=== PATIENT | female | born 1940 | race Caucasian/White ===

== ENCOUNTER → 2017-02-06 | Day surgery (SDC) | payer MEDICARE ==
[~2017-02-06] MED LIST: ACET325 PO; ASPI81TA82 PO; ATROPINE SULFATE 1% OPHT SOLN 2 ML BTL ONE; CALC600T44 PO; DEXAMETHASONE SOD PHOS 4 MG/ML VIAL ONE; EPINEPHrine HCL (1:1000) 1 MG/ML VIAL ONE; FISH120014 PO; FLURBIPROFEN 0.03% OPHT SOLN 2.5 ML BTL ONE; HYALURONIDASE/LIDOCAINE/BUPIVACAINE 11 ML SYR TL ONE; LACTATED RINGER'S 1000 ML INJ 1,000 ML ONE; LACTCAP7 PO; NEOMYCIN/POLYMYXIN/DEXAMETHASONE OPTH OINT 3.5 GM TUBE ONE; PHENYLEPHRINE HCL 2.5 % OPTH SOLN 15 ML BTL ONE; PRIL20CA PO; PROPOFOL 200 MG/20 ML AMP IV ONE; SODIUM CHLORIDE 0.9% INJ 10 ML ONE; TETRACAINE 0.5% OPTH SOLN 15 ML BTL ONE; TROPICAMIDE 1% OPHT SOLN 15 ML BTL ONE; VITA10002 PO; VITA20003 PO; ZOCO40TA PO; ceFAZolin INJ 1,000 MG VIAL ONE
--- NOTE | 2017-02-28 08:02 | TN ---
cc: ALEC CHING MD DATE OF SURGERY February 06, 2017 DATE OF 1940 PREOPERATIVE DIAGNOSIS Macular hole right eye. POSTOPERATIVE DIAGNOSIS Macular hole right eye. PROCEDURE Pars plana vitrectomy, membrane peeling, gas-fluid exchange, right eye. ANESTHESIA MAC. SURGEON Alec Ching MD. COMPLICATIONS None. PROCEDURE After informed consent was obtained and the eye was anesthetized with peribulbar anesthesia, she was brought to the operating room and the right eye was prepared and draped in the usual sterile fashion. A wire lid speculum was placed in the patient's right eye. 23-gauge vitrectomy cannulas were then placed in the lower temporal, supratemporal and supranasal quadrants 3 mm posterior to the corneoscleral limbus. An infusion cannula was placed lower temporally. Core vitrectomy was then performed using the vitreous cutter. The vitrectomy was carried out as far as possible to the vitreous base. Posteriorly the internal limiting membrane was peeled off from around the macular hole using intraocular forceps. Careful indirect ophthalmoscopy with scleral depression was then performed and no peripheral retinal breaks were noted. A complete air-fluid exchange was then performed. The air was then exchanged for 16% C3F8. The three vitrectomy cannulas were then removed. Subconjunctival injections of dexamethasone and Ancef were placed. An atropine drop, Maxitrol ointment and a patch and shield were then applied. The patient tolerated the procedure well. There were no complications. She will remain face down over the next five days. [facility]. Alec Ching MD TAB/SSB /10:04 AM /7:57 AM
== END | disposition home or self-care (01) ==
LOC: ESDC 12:21
PROVIDERS: ATTEND Ophthalmology Retina Specialist
DX: H35.341 Macular cyst, hole, or pseudohole, right eye (principal)
CPT/HCPCS: 00145; 67042; J0171; J0690; J1100; J7120

== ENCOUNTER 2018-12-21 11:00 | Inpatient (IN) ==
[2018-12-21 12:21] LABS: Baso % (Auto) 0.7 % (0.0-2.0); Eos # (Auto) 0.1 th/mm3 (0.0-0.4); Eos % (Auto) 2.2 % (0.0-4.0); Lymph # (Auto) 1.5 th/mm3 (1.0-4.8); Mean Corpuscular HGB Conc 31.6 % (32.0-36.0); Mean Corpuscular Hemoglobin 31.3 pg (27.0-34.0); Mean Corpuscular Volume 98.9 fL (80.0-100.0); Mean Platelet Volume 6.6 fL (7.0-11.0); Mono # (Auto) 0.5 th/mm3 (0.0-0.9); Mono % (Auto) 7.3 % (0.0-8.0); Neut # (Auto) 4.2 th/mm3 (1.8-7.7); Neut % (Auto) 65.8 % (16.0-70.0); Platelet Count 299 th/mm3 (150-450); Red Blood Count 1.89 mil/mm3 (4.00-5.30); Red Cell Distribution Width 18.3 % (11.6-17.2); White Blood Count 6.3 th/mm3 (4.0-11.0)
[2018-12-21 12:29] LABS: Activated Partial Thrombo Time 26.1 sec (23.4-31.7); Hematocrit 18.7 % (35.0-46.0); Hemoglobin 5.9 gm/dL (11.6-15.3); Prothrombin Time 10.5 sec (9.8-11.6)
--- NOTE | 2018-12-21 12:32 | XR ---
EXAM DATE: 12/21/2018 12:15 PM EST AGE/SEX: 78 years / Female INDICATIONS: Chest pain with shortness of breath. CLINICAL DATA: This is the patient's initial encounter. Patient reports that signs and symptoms have been present for 1 day and indicates a pain score of 10/10. MEDICAL/SURGICAL HISTORY: . Aortic stenosis. Coronary artery disease. Diastolic heart failure. . Valve replacement. COMPARISON: No prior exams available for comparison. FINDINGS: A single AP view of the chest demonstrates the lungs to be symmetrically aerated without evidence of mass, infiltrate or effusion. Mild cardiomegaly. Shoulder arthroplasty on the left CONCLUSION: Mild compensated cardiomegaly Electronically signed by: Sergio Vega MD Board Certified Radiologist 12/21/2018 12:31 PM EST
[2018-12-21] MEDS ORDERED: Pantoprazole Inj 80 MG in Sodium Chlor 0.9% Inj 50 ML IV.SIG ONE (12:40)
[2018-12-21 12:49] LABS: Alanine Aminotransferase 17 U/L (10-53); Albumin 3.3 g/dL (3.4-5.0); Anion Gap 9 meq/L (5-15); Aspartate Aminotransferase 13 U/L (15-37); Blood Urea Nitrogen 18 mg/dL (7-18); Calcium 8.3 mg/dL (8.5-10.1); Carbon Dioxide 23.6 meq/L (21.0-32.0); Chloride 108 meq/L (98-107); Glomerular Filtration Rate 79 mL/min (>89); Glucose,Random 108 mg/dL (74-106); Lipase 52 U/L (73-393); Potassium 3.4 meq/L (3.5-5.1); Sodium 141 meq/L (136-145)
[2018-12-21 12:52] LABS: Alkaline Phosphatase 58 U/L (45-117); Total Protein 6.3 g/dL (6.4-8.2)
[2018-12-21 12:54] LABS: Magnesium 2.1 mg/dL (1.5-2.5)
[2018-12-21] MEDS ORDERED: Octreotide Inj 500 MCG in Sodium Chlor 0.9% Inj 500 ML IV.CONT SCH (13:00)
[2018-12-21] MEDS ORDERED: Sodium Chlor 0.9% Inj 250 ML IV.SIG SCH (13:00)
--- NOTE | 2018-12-21 13:04 | ED ---
HPI General Chief complaint: Chest Pain Stated complaint: Chest Pain/SOB Time Seen by Provider: 12/21/18 12:04 Source: patient and family Mode of arrival: EMS Limitations: no limitations History of Present Illness HPI narrative: Patient is an 78-year-old female presenting to emergency department evaluation of shortness of breath and chest tightness. Patient states it is worse with exertion, she feels lightheaded. She states that when this occurs she feels somewhat disoriented. Patient is currently resting comfortably, she is chest pain-free. She states this has gotten worse over the last 3 weeks. Patient states for the last week she is noticed dark, tarry like stools. Patient had been on iron therapy but stopped this week ago thinking that was what was causing her stool to be dark. Her home health nurse had documented positive orthostatic vital signs with a systolic blood pressure dropping from 130->100 when standing. Patient also reports orthopnea. Patient was having outpatient testing performed this morning when she began to experience these symptoms again and was sent to the emergency department. Patient currently denies any headache, dizziness, chest pain, abdominal pain, nausea, vomiting. Onset (ago): week(s) Related Data Home Medications Medication Instructions Recorded Confirmed cholecalciferol (vitamin D3) 2,000 unit PO DAILY 11/30/18 12/21/18 [Vitamin D3] [id number] oil 1 cap PO DAILY 11/30/18 12/21/18 [[place]-3 (with dpa)] aspirin 81 mg PO HS 12/21/18 12/21/18 Previous Rx's Medication Instructions Recorded atorvastatin 80 mg PO HS 90 Days #90 tab 12/01/18 clopidogrel [Plavix] 75 mg PO DAILY 90 Days #90 tab 12/01/18 Allergies Allergy/AdvReac Type Severity Reaction Status Date / Time No Known Allergies Allergy Verified 12/21/18 11:32 Review of Systems ROS: all other systems reviewed are negative [facility] Medical History Medical History Aortic stenosis (Acute) Femoral artery hematoma complicating cardiac catheterization (Acute) GERD (gastroesophageal reflux disease) (Acute) Hiatal hernia with GERD (Acute) Hyperlipidemia (Acute) Murmur, heart (Acute) Surgical History Surgical History H/O abdominal surgery (Acute) H/O eye surgery (Acute) H/O heart artery stent (Acute) H/O hernia repair (Acute) H/O parathyroidectomy (Acute) H/O shoulder surgery (Acute) H/O total knee replacement (Acute) H/O tubal ligation (Acute) History of appendectomy (Acute) Social History Social History Substance History: No History of Abuse Second Hand Smoke Exposure: No Smoking Status: Former smoker Tobacco Type: Cigarettes How Often Do You Have a Drink Containing Alcohol: Never Recent Travel in [facility] within the Last 8 Weeks: No Recent Out of Country Travel within the Last 8 Weeks: No Immunization History Tetanus Immunization: <5 Years Exam Narrative Exam Narrative: GENERAL: Well-developed, well-nourished, alert elderly female. Presenting in no acute distress. SKIN: Focused skin assessment warm/dry. HEAD: Atraumatic. Normocephalic. EYES: Pupils equal and round. No scleral icterus. No injection or drainage. ENT: No nasal bleeding or discharge. Mucous membranes pink and moist. NECK: Trachea midline. No JVD. CARDIOVASCULAR: Regular rate and rhythm. Be over 6 systolic murmur appreciated. RESPIRATORY: No accessory muscle use. Clear to auscultation. Breath sounds equal bilaterally. GASTROINTESTINAL: Abdomen soft, non-tender, nondistended. Hepatic and splenic margins not palpable. MUSCULOSKELETAL: No obvious deformities. No clubbing. No cyanosis. Edema noted to right lower extremity, moderate ecchymosis noted to the right lower extremity. NEUROLOGICAL: Awake and alert. No obvious cranial nerve deficits. Motor grossly within normal limits. Normal speech. PSYCHIATRIC: Appropriate mood and affect; insight and judgment normal. Course Initial Documented Vital Signs Temperature 97.9 F 12/21/18 11:04 Pulse Rate 90 12/21/18 11:04 Respiratory Rate 20 12/21/18 11:04 Blood Pressure 155/68 H 12/21/18 11:04 Pulse Oximetry 100 12/21/18 11:04 Last Documented Vital Signs Temperature 98.9 F 12/23/18 12:00 Pulse Rate 82 12/23/18 12:00 Respiratory Rate 18 12/23/18 12:00 Blood Pressure 113/54 L 12/23/18 12:00 Pulse Oximetry 100 12/23/18 12:00 Medical Decision Making PATRICIO Attestation PATRICIO supervised visit: Yes Attestation: I, Dr. Murry, have reviewed the advance practice practitioner's documentation and am in agreement, met with the patient face to face, made the diagnosis, and the medical decision making was done by me. *My assessment and Findings: GI bleed. Anemia. MDM Narrative Medical decision making narrative: She is an 78-year-old female presenting with chest tightness and shortness of breath as worse with exertion. Symptoms have been ongoing for the last 3 weeks getting progressively worse. She had dark tarry stools for the last week. Labs and imaging ordered and pending. IV access was established, patient was placed on monitoring specialist continuous pulse oximetry. CBC resulted with a hemoglobin of 5.9, this is dropped from 8.73 weeks ago. Stool is guaiac positive. Patient was placed on a Protonix drip after receiving a Protonix bolus. Sandostatin infusion ordered as well as a blood transfusion. Pt states she has been on aspirin for a long time, the Plavix was introduced recently. Chemistry with potassium of 3.4, oral replacement ordered. Discussed with Dr. Evans who accepted admit, orders placed. Medical Screen Exam Complete: Yes Emergency Medical Condition: Yes Differential Diagnosis Differential Diagnosis: ACS versus aortic stenosis versus metabolic abnormality versus UTI versus other Medical Records Medical records reviewed: Yes I reviewed the patient's medical records. Lab Data Lab results reviewed: Yes I reviewed the patient's lab results. Result diagrams: 12/23/18 08:30 12/23/18 08:50 Lab Results 12/21/18 12/21/18 12/21/18 Range/Units 11:51 11:51 11:51 WBC 6.3 (4.0-11.0) th/mm3 RBC 1.89 L (4.00-5.30) mil/mm3 Hgb 5.9 L* (11.6-15.3) gm/dL Hct 18.7 L* (35.0-46.0) % MCV 98.9 (80.0-100.0) fL MCH 31.3 (27.0-34.0) pg MCHC 31.6 L (32.0-36.0) % RDW 18.3 H (11.6-17.2) % Plt Count 299 D (150-450) th/mm3 MPV 6.6 L (7.0-11.0) fL Neut % (Auto) 65.8 (16.0-70.0) % Lymph % (Auto) 24.0 (9.0-44.0) % [place] % (Auto) 7.3 (0.0-8.0) % Eos % (Auto) 2.2 (0.0-4.0) % Baso % (Auto) 0.7 (0.0-2.0) % Neut # (Auto) 4.2 (1.8-7.7) th/mm3 Lymph # (Auto) 1.5 (1.0-4.8) th/mm3 [place] # (Auto) 0.5 (0.0-0.9) th/mm3 Eos # (Auto) 0.1 (0.0-0.4) th/mm3 Baso # (Auto) 0.0 (0.0-0.2) th/mm3 WBC Differential . Differential Comment Auto diff final PT (9.8-11.6) sec INR Ratio APTT (23.4-31.7) sec Sodium 141 (136-145) meq/L Potassium 3.4 L (3.5-5.1) meq/L Chloride 108 H (98-107) meq/L Carbon Dioxide 23.6 (21.0-32.0) meq/L Anion Gap 9 (5-15) meq/L BUN 18 (7-18) mg/dL Creatinine 0.71 (0.50-1.00) mg/dL Estimated GFR 79 L (>89) mL/min Random Glucose 108 H (74-106) mg/dL Calcium 8.3 L (8.5-10.1) mg/dL Magnesium (1.5-2.5) mg/dL Total Bilirubin 0.7 (0.2-1.0) mg/dL AST 13 L (15-37) U/L ALT 17 (10-53) U/L Alkaline Phosphatase 58 (45-117) U/L Total Creatine Kinase (26-192) U/L Troponin I Less than 0.02 L (0.02-0.05) ng/mL B-Natriuretic Peptide 128 H (0-100) pg/mL Total Protein 6.3 L (6.4-8.2) g/dL Albumin 3.3 L (3.4-5.0) g/dL Lipase 52 L (73-393) U/L Blood Type Antibody Screen MTS Gel Crossmatch 12/21/18 12/21/18 12/21/18 Range/Units 11:51 11:51 11:57 WBC (4.0-11.0) th/mm3 RBC (4.00-5.30) mil/mm3 Hgb (11.6-15.3) gm/dL Hct (35.0-46.0) % MCV (80.0-100.0) fL MCH (27.0-34.0) pg MCHC (32.0-36.0) % RDW (11.6-17.2) % Plt Count (150-450) th/mm3 MPV (7.0-11.0) fL Neut % (Auto) (16.0-70.0) % Lymph % (Auto) (9.0-44.0) % [place] % (Auto) (0.0-8.0) % Eos % (Auto) (0.0-4.0) % Baso % (Auto) (0.0-2.0) % Neut # (Auto) (1.8-7.7) th/mm3 Lymph # (Auto) (1.0-4.8) th/mm3 [place] # (Auto) (0.0-0.9) th/mm3 Eos # (Auto) (0.0-0.4) th/mm3 Baso # (Auto) (0.0-0.2) th/mm3 WBC Differential Differential Comment PT 10.5 (9.8-11.6) sec INR 1.0 Ratio APTT 26.1 (23.4-31.7) sec Sodium (136-145) meq/L Potassium (3.5-5.1) meq/L Chloride (98-107) meq/L Carbon Dioxide (21.0-32.0) meq/L Anion Gap (5-15) meq/L BUN (7-18) mg/dL Creatinine (0.50-1.00) mg/dL Estimated GFR (>89) mL/min Random Glucose (74-106) mg/dL Calcium (8.5-10.1) mg/dL Magnesium 2.1 (1.5-2.5) mg/dL Total Bilirubin (0.2-1.0) mg/dL AST (15-37) U/L ALT (10-53) U/L Alkaline Phosphatase (45-117) U/L Total Creatine Kinase 54 (26-192) U/L Troponin I (0.02-0.05) ng/mL B-Natriuretic Peptide (0-100) pg/mL Total Protein (6.4-8.2) g/dL Albumin (3.4-5.0) g/dL Lipase (73-393) U/L Blood Type O Negative Antibody Screen Negative MTS Gel Crossmatch See Detail 12/22/18 12/22/18 12/22/18 Range/Units 09:40 09:40 21:18 WBC 6.6 (4.0-11.0) th/mm3 RBC 3.00 L (4.00-5.30) mil/mm3 Hgb 9.5 L D 10.0 L (11.6-15.3) gm/dL Hct 27.4 L (35.0-46.0) % MCV 91.6 D (80.0-100.0) fL MCH 31.7 (27.0-34.0) pg MCHC 34.6 (32.0-36.0) % RDW 16.2 (11.6-17.2) % Plt Count 270 (150-450) th/mm3 MPV 6.6 L (7.0-11.0) fL Neut % (Auto) 70.6 H (16.0-70.0) % Lymph % (Auto) 16.3 (9.0-44.0) % [place] % (Auto) 8.1 H (0.0-8.0) % Eos % (Auto) 4.3 H (0.0-4.0) % Baso % (Auto) 0.7 (0.0-2.0) % Neut # (Auto) 4.7 (1.8-7.7) th/mm3 Lymph # (Auto) 1.1 (1.0-4.8) th/mm3 [place] # (Auto) 0.5 (0.0-0.9) th/mm3 Eos # (Auto) 0.3 (0.0-0.4) th/mm3 Baso # (Auto) 0.0 (0.0-0.2) th/mm3 WBC Differential . Differential Comment Auto diff final PT (9.8-11.6) sec INR Ratio APTT (23.4-31.7) sec Sodium 143 (136-145) meq/L Potassium 3.3 L (3.5-5.1) meq/L Chloride 107 (98-107) meq/L Carbon Dioxide 26.4 (21.0-32.0) meq/L Anion Gap 10 (5-15) meq/L BUN 15 (7-18) mg/dL Creatinine 0.83 (0.50-1.00) mg/dL Estimated GFR 66 L (>89) mL/min Random Glucose 120 H (74-106) mg/dL Calcium 7.9 L (8.5-10.1) mg/dL Magnesium (1.5-2.5) mg/dL Total Bilirubin 4.0 H (0.2-1.0) mg/dL AST 17 (15-37) U/L ALT 14 (10-53) U/L Alkaline Phosphatase 62 (45-117) U/L Total Creatine Kinase (26-192) U/L Troponin I (0.02-0.05) ng/mL B-Natriuretic Peptide (0-100) pg/mL Total Protein 6.4 (6.4-8.2) g/dL Albumin 3.3 L (3.4-5.0) g/dL Lipase (73-393) U/L Blood Type Antibody Screen MTS Gel Crossmatch 12/23/18 12/23/18 Range/Units 08:30 08:50 WBC 7.8 (4.0-11.0) th/mm3 RBC 3.01 L (4.00-5.30) mil/mm3 Hgb 9.6 L (11.6-15.3) gm/dL Hct 28.0 L (35.0-46.0) % MCV 92.9 (80.0-100.0) fL MCH 31.9 (27.0-34.0) pg MCHC 34.3 (32.0-36.0) % RDW 16.7 (11.6-17.2) % Plt Count 243 (150-450) th/mm3 MPV 6.4 L (7.0-11.0) fL Neut % (Auto) 75.4 H (16.0-70.0) % Lymph % (Auto) 13.9 (9.0-44.0) % [place] % (Auto) 7.3 (0.0-8.0) % Eos % (Auto) 2.9 (0.0-4.0) % Baso % (Auto) 0.5 (0.0-2.0) % Neut # (Auto) 5.9 (1.8-7.7) th/mm3 Lymph # (Auto) 1.1 (1.0-4.8) th/mm3 [place] # (Auto) 0.6 (0.0-0.9) th/mm3 Eos # (Auto) 0.2 (0.0-0.4) th/mm3 Baso # (Auto) 0.0 (0.0-0.2) th/mm3 WBC Differential . Differential Comment Auto diff final PT (9.8-11.6) sec INR Ratio APTT (23.4-31.7) sec Sodium 140 (136-145) meq/L Potassium 3.6 (3.5-5.1) meq/L Chloride 107 (98-107) meq/L Carbon Dioxide 23.0 (21.0-32.0) meq/L Anion Gap 10 (5-15) meq/L BUN 16 (7-18) mg/dL Creatinine 0.74 (0.50-1.00) mg/dL Estimated GFR 76 L (>89) mL/min Random Glucose 106 (74-106) mg/dL Calcium 8.3 L (8.5-10.1) mg/dL Magnesium (1.5-2.5) mg/dL Total Bilirubin (0.2-1.0) mg/dL AST (15-37) U/L ALT (10-53) U/L Alkaline Phosphatase (45-117) U/L Total Creatine Kinase (26-192) U/L Troponin I (0.02-0.05) ng/mL B-Natriuretic Peptide (0-100) pg/mL Total Protein (6.4-8.2) g/dL Albumin (3.4-5.0) g/dL Lipase (73-393) U/L Blood Type Antibody Screen MTS Gel Crossmatch Imaging Data Radiologist's impression: Chest X-Ray 12/21/18 12:04 CONCLUSION: Mild compensated cardiomegaly Venous Doppler Study 12/21/18 13:04 CONCLUSION: 1. No deep venous thrombosis identified. 2. There is an area of superficial venous thrombosis in a varicosity which arises from the greater saphenous in the right upper thigh/groin region. Discharge Plan Discharge Disposition Patient Disposition: ED Admit(ED Internal Use Only) Discharge Condition Condition: Stable Discharge Order Discharge Orders: ED Use Only Admit Order (Routine); Ordered 12/21/18 Ordered By: Adriana Roblero Discharge Details Diagnosis: Aortic stenosis, Acute GI bleeding, Symptomatic anemia Physicians Team ED Provider: Ahsan Murry ED Midlevel Provider: Adriana Roblero Primary Care Provider: Eugenio Mcneil Attending Provider: Sheldon Evans Other Providers: Nicholas Nunez V ; Wing Rona Cherry Status ED Status: Left Department Discharge Information Discharge Date/Time: 12/21/18 16:56
[2018-12-21] MEDS ORDERED: Pantoprazole Inj 80 MG in Sodium Chlor 0.9% Inj 35 ML IV.SIG ONE (14:00)
[2018-12-21] MEDS: Pantoprazole Inj 80 MG in Sodium Chlor 0.9% Inj 100 ML IV.CONT SCH ×2 (14:32→23:15)
--- NOTE | 2018-12-21 14:54 | US ---
EXAM DATE: 12/21/2018 2:50 PM EST AGE/SEX: 78 years / Female INDICATIONS: Right leg swelling and bruising. CLINICAL DATA: This is the patient's initial encounter. Patient reports that signs and symptoms have been present for 1 week and indicates a pain score of 2/10. MEDICAL/SURGICAL HISTORY: Gastroesophageal reflux disease. Aortic stenosis. Hiatal hernia. Hype rlipidemia. Heart murmur. Tubal ligation. Appendectomy. Eye surgery. Hernia repair. Para thyroidect aric. Left shoulder surgery. Bilateral knee replacement. COMPARISON: No prior exams available for comparison. TECHNIQUE: Venous ultrasound of both lower extremities was performed from the inguinal ligament to t he proximal calf. Real-time, color Doppler and spectral tracing, compression and augmentation techni ques were used. FINDINGS: The deep venous system of the right lower extremity is widely patent. Evaluation of the superficial venous system demonstrates a small varicosity which is thrombosed in th e right upper thigh/groin region. CONCLUSION: 1. No deep venous thrombosis identified. 2. There is an area of superficial venous thrombosis in a varicosity which arises from the greater s aphenous in the right upper thigh/groin region. Electronically signed by: Yordan Vega MD Board Certified Radiologist 12/21/2018 2:53 PM EST
[2018-12-21] MEDS ORDERED: Acetaminophen 325 MG Tablet PO PRN (14:55)
--- NOTE | 2018-12-21 16:12 | P.HPIM ---
History of Present Illness Primary Care Physician: Eugenio Mcneil MD History of Present Illness: Mrs. Gonzalez is a pleasant 78 y/o female with severe aortic stenosis, hyperlipidemia, AYAZ, and hx of GERD. Pt was recently hospitalized from 11/30/18 to 12/04/18. She underwent a left and right heart cath on 11/30/18 which revealed proximal LAD stenosis of 80% and 95% in the mid LAD, the diagonal had a 30%-40% and patient underwent orbital rotational atherectomy , balloon angioplasty, drug-eluting stent in the proximal and mid left anterior descending coronary artery. Her hospital course was complicated by an expanding right groin hematoma status post PCI and underwent right groin exploration and repair of right common femoral artery on 12/01/[address] Cheema. Pt was discharged on Plavix, ASA, statin. The BB was held due to hypotension. She reports that she was doing well following that hospitalization. She followed up with her PCP following that admission and was started on iron supplements every other day due to anemia. Her labs prior to discharge noted Hgb 8.7/Hct 25.0. She had some diarrhea while on the iron supplements earlier this week and reported that the stool was jet black at that time. She called her PCP and was instructed to hold the iron supplements which she has not taken in the last 5-6 days. She reported that she has had some dizziness and orthostatic hypotension according to the [facility] nurses. She also noted some tightness in her chest over the last few days and increased weakness and having to use her walker more. This morning she had a BM and states that it was again "jet black." This prompted her evaluation in the ED. Her labs in the ED noted Hgb 5.9/Hct 18.7. Pt does not take any PPI or H2 blockers but did in the past for GERD. She denies any NSAID use other than her ASA. She denies any abd pain, nausea/vomiting, reflux, dysphagia, BRBPR or hematochezia. She was noted to be guaiac positive in the ED. Her last EGD/colonoscopy was 12/16/[address] oCttrell which noted gastritis, mild duodenitis, gastric polyps, distal esophagitis, small hiatal hernia, diverticulosis, polyp in the descending colon and hemorrhoids. Past Medical Hx: Severe aortic stenosis Hx of SBO GERD Hiatal hernia AYAZ Hyperlipidemia Chronic back pain Osteoarthritis 2D echo (2/1/19): - Mild concentric left ventricular hypertrophy. - Estimated ejection fraction of 60-65%. - Diffuse calcification of the aortic valve. - Severe aortic valve stenosis. - Aortic valve mean gradient is 37 mmHg Past Surgical Hx: LHC/RHC with Dr. Hutchinson on 11/30/18 --> Severe aortic valve stenosis, severe calcific proximal and mid left anterior descending coronary artery stenosis, normal left and right-sided filling pressures, normal pulmonary pressures, and successful orbital rotational arthrectomy, balloon angioplasty, and drug- eluting stent placement in the proximal and mid left anterior descending coronary artery. Right groin exploration and repair of right common femoral artery on 12/01/[address] Cheema EGD/colonoscopy was 12/16/[address] Cottrell which noted gastritis, mild duodenitis, gastric polyps, distal esophagitis, small hiatal hernia, diverticulosis, polyp in the descending colon and hemorrhoids Lysis of adhesions Tubal ligation Hernia surgery Bilateral knee arthroplasty Shoulder surgery Parathyroidectomy Family Hx: Noncontributory Social Hx: Remote hx of tobacco use, quit when she was 35 y/o Denies any alcohol use or illicit drug use Diagnosis (1) Symptomatic anemia: (2) Acute GI bleeding: (3) Aortic stenosis: (4) CAD (coronary artery disease): Inpatient Certification Inpatient Certification: I certify that the inpatient services were ordered in accordance with Medicare regulations governing the order. This includes certification that hospital inpatient services are reasonable and necessary and in the case of services not specified as inpatient-only under 42 CFR 419.22(n), that they are appropriately provided as inpatient services in accordance to with the 2-midnight benchmark under 43 CFR 412.3(e) Estimated Total Length of Stay (Days): 3 Plans for Post Hospital Care: Not yet determined Medications and Allergies Allergies Allergy/AdvReac Type Severity Reaction Status Date / Time No Known Allergies Allergy Verified 12/21/18 11:32 Home Medications Medication Instructions Recorded Confirmed Type cholecalciferol (vitamin D3) 2,000 unit PO DAILY 11/30/18 12/21/18 History [Vitamin D3] [id number] oil 1 cap PO DAILY 11/30/18 12/21/18 History [[place]-3 (with dpa)] aspirin 81 mg PO HS 12/21/18 12/21/18 History Active Medications: Active Medications Acetaminophen (Tylenol) 650 mg PO Q4H PRN PRN Reason: Temp > 100.4 Al Hydroxide/Mg Hydroxide (Milk Of Leanne Broussard) 30 ml PO Q12H PRN PRN Reason: Mild Constipation Sodium Chloride (Ns Inj) 250 mls @ 15 mls/hr IV.SIG ONCE JAIMIE Stop: 12/22/18 05:39 Pantoprazole Sodium 80 mg/ (Sodium Chloride) 100 mls @ 10 mls/hr IV.CONT Q10H [facility] Last Admin: 12/21/18 14:32 Dose: 10 mls/hr Octreotide Acetate 500 mcg/ (Sodium Chloride) 500.5 mls @ 50.05 mls/hr IV.CONT .Q10H [facility] Last Admin: 12/21/18 14:33 Dose: 50 mcg/hr, 50.05 mls/hr Ondansetron HCl (Zofran Inj) 4 mg IV.PUSH Q6H PRN PRN Reason: NAUSEA OR VOMITING Sodium Chloride (Ns Flush) 2 ml IV.FLUSH UNSCH PRN PRN Reason: FLUSH AFTER USING IV ACCESS Last Admin: 12/21/18 12:09 Dose: 2 ml Sodium Chloride (Ns Flush) 2 ml IV.FLUSH BID JAIMIE Sodium Chloride (Ns Flush) 2 ml IV.FLUSH PRN PRN PRN Reason: FLUSH AFTER USING IV ACCESS Physical Exam Vital signs: Last Vital Signs Temp 97.9 F 12/21/18 11:04 Pulse 80 12/21/18 14:34 Resp 18 12/21/18 14:34 BP 107/55 L 12/21/18 14:34 Pulse Ox 100 12/21/18 14:34 Narrative: GENERAL: NAD, AAOx3 SKIN: Warm and dry. HEENT: Atraumatic. Normocephalic. Pupils equal and round. No scleral icterus. No injection or drainage. No nasal bleeding or discharge. Mucous membranes pink and moist. NECK: Trachea midline. No JVD. CARDIO: Regular rate and rhythm. 4/6 EDUARDO RESP: No accessory muscle use. Clear to auscultation. Breath sounds equal bilaterally. ABD: +BS, soft, non-tender, nondistended. Hepatic and splenic margins not palpable. EXT: Extremities without clubbing, cyanosis, or edema. No obvious deformities. NEURO: Awake and alert. No obvious cranial nerve deficits. Motor grossly within normal limits. Five out of 5 muscle strength in the arms and legs. Normal speech. PSYCH: Appropriate mood and affect; insight and judgment normal. Results Labs CBC & Chem 7: 12/21/18 11:51 12/21/18 11:51 Imaging Chest X-Ray 12/21/18 12:04 CONCLUSION: Mild compensated cardiomegaly Venous Doppler Study 12/21/18 13:04 CONCLUSION: 1. No deep venous thrombosis identified. 2. There is an area of superficial venous thrombosis in a varicosity which arises from the greater saphenous in the right upper thigh/groin region. Caprini VTE Risk Assessment Caprini VTE Risk Assessment: Moderate/High Risk (score >= 2) VTE Pharmacological Exception Reason: Active bleeding Caprini Risk Assessment Model: Point Value = 1 Point Value = 2 Point Value = 3 Point Value = 5 Age 41-60 Minor surgery BMI > 25 kg/m2 Swollen legs Varicose veins or History of unexplained or recurrent spontaneous Oral contraceptives or hormone replacement Sepsis (< 1 month) Serious lung disease, including pneumonia (< 1 month) Abnormal pulmonary function Acute myocardial infarction Congestive heart failure (< 1 month) History of inflammatory bowel disease Medical patient at bed rest Age 61-74 Arthroscopic surgery Major open surgery (> 45 min) Laparoscopic surgery (> 45 min) Malignancy Confined to bed (> 72 hours) Immobilizing plaster cast Central venous access Age >= 75 History of VTE Family history of VTE Factor V Leiden Prothrombin [id number] Lupus anticoagulant Anticardiolipin antibodies Elevated serum homocysteine Heparin-induced thrombocytopenia Other congenital or acquired thrombophilia Stroke (< 1 month) Elective arthroplasty Hip, pelvis, or leg fracture Acute spinal cord injury (< 1 month) Prophylaxis Regimen: Total Risk Factor Score Risk Level Prophylaxis Regimen 0-1 Low Early ambulation 2 Moderate Order ONE of the following: *Sequential Compression Device (SCD) *Heparin 5000 units SQ BID 3-4 Higher Order ONE of the following medications: *Heparin 5000 units SQ TID *Enoxaparin/Lovenox 40 mg SQ daily (WT < 150 kg, CrCl > 30 mL/min) *Enoxaparin/Lovenox 30 mg SQ daily (WT < 150 kg, CrCl > 10-29 mL/min) *Enoxaparin/Lovenox 30 mg SQ BID (WT < 150 kg, CrCl > 30 mL/min) AND/OR *Sequential Compression Device (SCD) 5 or more Highest Order ONE of the following medications: *Heparin 5000 units SQ TID (Preferred with Epidurals) *Enoxaparin/Lovenox 40 mg SQ daily (WT < 150 kg, CrCl > 30 mL/min) *Enoxaparin/Lovenox 30 mg SQ daily (WT < 150 kg, CrCl > 10-29 mL/min) *Enoxaparin/Lovenox 30 mg SQ BID (WT < 150 kg, CrCl > 30 mL/min) AND *Sequential Compression Device (SCD) Assessment and Plan Assessment (1) Symptomatic anemia: Code(s): D64.9 - Anemia, unspecified Status: Acute (2) Acute GI bleeding: Code(s): K92.2 - Gastrointestinal hemorrhage, unspecified Status: Acute (3) Aortic stenosis: Code(s): I35.0 - Nonrheumatic aortic (valve) stenosis Status: Chronic (4) CAD (coronary artery disease): Code(s): I25.10 - Atherosclerotic heart disease of [place] coronary artery without angina pectoris Status: Chronic Plan Symptomatic anemia GIB - Pt is an 78 y/o female with severe aortic stenosis, hyperlipidemia, AYAZ, and hx of GERD. Pt was recently hospitalized from 11/30/18 to 12/04/18. She underwent a left and right heart cath on 11/30/18 which revealed proximal LAD stenosis of 80% and 95% in the mid LAD, the diagonal had a 30%-40% and patient underwent orbital rotational atherectomy, balloon angioplasty, drug-eluting stent in the proximal and mid left anterior descending coronary artery. Her hospital course was complicated by an expanding right groin hematoma status post PCI and underwent right groin exploration and repair of right common femoral artery on with Dr. Cheema. Pt was discharged on Plavix, ASA, statin. The BB was held due to hypotension. Following that admission and was started on iron supplements every other day due to anemia. Her labs prior to discharge noted Hgb 8.7/Hct 25.0. She had some diarrhea while on the iron supplements earlier this week and reported that the stool was "jet black" at that time. She held the iron supplements for the last 5-6 days. She reported that she has had some dizziness and orthostatic hypotension. She also noted some tightness in her chest over the last few days and increased weakness. This morning she had a BM and states that it was again "jet black." This prompted her evaluation in the ED. - Her labs in the ED noted Hgb 5.9/Hct 18.7. Pt was noted to be guaiac positive in the ED. - Her last EGD/colonoscopy was 12/16/[address] Cottrell which noted gastritis, mild duodenitis, gastric polyps, distal esophagitis, small hiatal hernia, diverticulosis, polyp in the descending colon and hemorrhoids. - Pt was started on Protonix gtt and Octreotide gtt in the ED - Stop the Octreotide and continue the Protonix gtt - Consult GI - Case discussed with Dr. Hutchinson and secondary to the pts recent PCI with HAYDEN she is recommended to continue on the ASA and Plavix so these were resumed. - Pt is planned for transfusion with 3 units of PRBCs ordered in the ED. - Lasix 20mg IV is to be given in between the three units of PRBCs due to patients severe aortic stenosis and risk for volume overload - Monitor H/H closely - Clear liquid diet for now - Supportive care - Further recommendations as the case develops Severe Aortic Stenosis CAD Right groin hematoma - She recently underwent a left and right heart cath on 11/30/18 which revealed proximal LAD stenosis of 80% and 95% in the mid LAD, the diagonal had a 30%-40% and patient underwent orbital rotational atherectomy, balloon angioplasty, drug- eluting stent in the proximal and mid left anterior descending coronary artery. Her hospital course was complicated by an expanding right groin hematoma status post PCI and underwent right groin exploration and repair of right common femoral artery on 12/01/[address] Cheema. - - Pt was discharged on Plavix , ASA, statin. The BB was held due to hypotension. - Cont. home meds per discussion with Dr. Hutchinson due to pts HAYDEN - Pt was given IVF in the ED and is to receive transfusion with 3 units PRBCs, will monitor closely for volume overload - Consult placed to Dr. Hutchinson - Pt had been planned to have her bilateral groin sutures removed today, these are planned for removal by the ED _ (1) Aortic stenosis Qualifiers: Cardiac valve disease etiology: etiology unspecified Qualified Code(s): I35.0 - Nonrheumatic aortic (valve) stenosis (2) CAD (coronary artery disease) Qualifiers: Coronary Disease-Associated Artery/Lesion type: [place] artery [place] vs. transplanted heart: [place] heart Associated angina: angina presence unspecified Qualified Code(s): I25.10 - Atherosclerotic heart disease of [place] coronary artery without angina pectoris
--- NOTE | 2018-12-21 18:08 | P.CONGI ---
History of Present Illness Consult date: 12/21/18 Consult reason: GI bleed Melanotic stools Anemia Chief complaint: GI bleed, Aortic stenosis, stmptomatic anemia History of Present Illness: Patient is a pleasant 78-year-old female with past medical history significant for severe aortic stenosis, hyperlipidemia, obstructive sleep apnea and history of GERD. Patient was recently admitted to the hospital from 11/30/18 to 12/04/18. At that time she underwent a right heart cath which revealed proximal LAD stenosis of 80% and 95% in the mid LAD. At that time patient underwent balloon angioplasty with placement of drug-eluting stent in the proximal and mid left anterior descending coronary artery. This hospitalization apparently was coming complicated by a hematoma to the right groin. Patient then underwent groin exploration and repair of right common femoral artery on 12/01/2018. Patient was discharged on Plavix, aspirin and a statin. Upon consultation, patient endorses that she has felt dizzy and lightheaded with intermittent shortness of breath on exertion post procedure. She states that since her stent placement, she is experienced generalized weakness and fatigue. States she visited her primary care physician who put her on daily iron supplements. Patient endorses that she has noted black sticky tarry stools for the last 5 days. Patient denies use of NSAIDs other than aspirin 81 mg p.o. daily. She denies use of EtOH or tobacco products. Upon arrival, hemoglobin noted to be 5.9 hematocrit 18.7. Patient has been started on octreotide at 50 mcs as well as a pantoprazole infusion. Our service has been consulted to evaluate patient for GI bleeding and melanotic stools with symptomatic anemia. Of note, patient's last EGD and colonoscopy was on [address] Cottrell. Studies revealed gastritis, mild duodenitis, gastric polyps and distal esophagitis with a small hiatal hernia. Colonoscopy revealed diverticulosis with a polyp in the descending colon and hemorrhoids. Review of Systems All other systems reviewed negative except as stated in HPI PMF - History History Provided By: Patient - Medical History Medical History: Medical History (Last Reviewed 12/21/18 @ 13:06 by SHAMIR Crockett) Aortic stenosis Femoral artery hematoma complicating cardiac catheterization GERD (gastroesophageal reflux disease) Hiatal hernia with GERD Hyperlipidemia Murmur, heart - Surgical History Surgical History: Surgical History (Last Reviewed 12/21/18 @ 13:06 by ANGI Crockett H/O abdominal surgery H/O eye surgery H/O heart artery stent H/O hernia repair H/O parathyroidectomy H/O shoulder surgery H/O total knee replacement H/O tubal ligation History of appendectomy - Tobacco History Second Hand Smoke Exposure: No Tobacco Use In Past 30 Days: No Smoking Status: Former smoker Tobacco Type: Cigarettes - Alcohol History How Often Do You Have a Drink Containing Alcohol: Never - Substance Use History Substance History: No History of Abuse - Travel History Recent Travel in the [place] Within the Last 8 Weeks: No Recent Travel Out of the Country Within the Last 8 Weeks: No - Immunization History Tetanus Immunization: <5 Years Medications and Allergies Active Medications: Active Medications Acetaminophen (Tylenol) 650 mg PO Q4H PRN PRN Reason: Temp > 100.4 Al Hydroxide/Mg Hydroxide (Milk Of Leanne Liq) 30 ml PO Q12H PRN PRN Reason: Mild Constipation Aspirin (Aspirin Chew) 81 mg PO HS JAIMIE Atorvastatin Calcium (Lipitor) 80 mg PO HS JAIMIE Clopidogrel Bisulfate (Plavix) 75 mg PO DAILY JAIMIE Furosemide (Lasix Inj) 20 mg IV.PUSH [employer] JAIMIE Pantoprazole Sodium 80 mg/ (Sodium Chloride) 100 mls @ 10 mls/hr IV.CONT Q10H JAIMIE Last Admin: 12/21/18 14:32 Dose: 10 mls/hr Ondansetron HCl (Zofran Inj) 4 mg IV.PUSH Q6H PRN PRN Reason: NAUSEA OR VOMITING Sodium Chloride (Ns Flush) 2 ml IV.FLUSH UNSCH PRN PRN Reason: FLUSH AFTER USING IV ACCESS Last Admin: 12/21/18 12:09 Dose: 2 ml Sodium Chloride (Ns Flush) 2 ml IV.FLUSH BID JAIMIE Sodium Chloride (Ns Flush) 2 ml IV.FLUSH PRN PRN PRN Reason: FLUSH AFTER USING IV ACCESS Allergies Allergy/AdvReac Type Severity Reaction Status Date / Time No Known Allergies Allergy Verified 12/21/18 11:32 Home Medications Medication Instructions Recorded Confirmed Type cholecalciferol (vitamin D3) 2,000 unit PO DAILY 11/30/18 12/21/18 History [Vitamin D3] [id number] oil 1 cap PO DAILY 02/01/19 02/22/19 History [[place]-3 (with dpa)] aspirin 81 mg PO HS 12/21/18 12/21/18 History Exam Vital signs: Vital Signs 12/21/18 11:04 12/21/18 11:32 12/21/18 14:34 Temperature 97.9 F Pulse Rate 90 84 80 Respiratory Rate 20 20 18 Blood Pressure 155/68 H 154/68 H 107/55 L Pulse Oximetry 100 99 100 Intake & Output 12/20/18 12/21/18 12/21/18 18:59 06:59 18:59 Intake Total 35 / 35 Balance 35 / 35 Weight 83.91 kg Intake: IV 35 / 35 Protonix Inj 80 MG In NS Inj 35 35 / 35 ML @ 600 mls/hr IV.SIG BOLUS ONE Rx#:[id number] Other: Weight On Admission 160.02 kg - Constitutional no acute distress, cooperative - Routine HEENT Exam Head: Present: normocephalic - Routine Neck Exam Present: supple - Routine Respiratory Exam Present: CTA bilaterally. Absent: accessory muscle use - Routine Cardiovascular Exam Present: RRR. Absent: tachycardia, irregular rhythm - Routine Abdominal Exam Present: soft, normoactive bowel sounds. Absent: tenderness, distended, guarding, firm - Routine Extremities Exam Present: pulses intact. Absent: edema - Routine Skin Exam Present: dry, warm - Routine Neurological Exam Present: alert, oriented X3 Results - Labs CBC & Chem 7: 12/21/18 11:51 12/21/18 11:51 Labs: Laboratory Results - last 24 hr 12/21/18 12/21/18 12/21/18 11:51 11:51 11:51 WBC 6.3 RBC 1.89 L Hgb 5.9 L* Hct 18.7 L* MCV 98.9 MCH 31.3 MCHC 31.6 L RDW 18.3 H Plt Count 299 D MPV 6.6 L Neut % (Auto) 65.8 Lymph % (Auto) 24.0 Butler % (Auto) 7.3 Eos % (Auto) 2.2 Baso % (Auto) 0.7 Neut # (Auto) 4.2 Lymph # (Auto) 1.5 Butler # (Auto) 0.5 Eos # (Auto) 0.1 Baso # (Auto) 0.0 WBC Differential . Differential Comment Auto diff final PT INR APTT Sodium 141 Potassium 3.4 L Chloride 108 H Carbon Dioxide 23.6 Anion Gap 9 BUN 18 Creatinine 0.71 Estimated GFR 79 L Random Glucose 108 H Calcium 8.3 L Magnesium Total Bilirubin 0.7 AST 13 L ALT 17 Alkaline Phosphatase 58 Total Creatine Kinase Troponin I Less than 0.02 L B-Natriuretic Peptide 128 H Total Protein 6.3 L Albumin 3.3 L Lipase 52 L Blood Type Antibody Screen MTS Gel Crossmatch 12/21/18 12/21/18 12/21/18 11:51 11:51 11:57 WBC RBC Hgb Hct MCV MCH MCHC RDW Plt Count MPV Neut % (Auto) Lymph % (Auto) Butler % (Auto) Eos % (Auto) Baso % (Auto) Neut # (Auto) Lymph # (Auto) Butler # (Auto) Eos # (Auto) Baso # (Auto) WBC Differential Differential Comment PT 10.5 INR 1.0 APTT 26.1 Sodium Potassium Chloride Carbon Dioxide Anion Gap BUN Creatinine Estimated GFR Random Glucose Calcium Magnesium 2.1 Total Bilirubin AST ALT Alkaline Phosphatase Total Creatine Kinase 54 Troponin I B-Natriuretic Peptide Total Protein Albumin Lipase Blood Type O Negative Antibody Screen Negative MTS Gel Crossmatch See Detail - Imaging Impressions Chest X-Ray 12/21/18 12:04 CONCLUSION: Mild compensated cardiomegaly Venous Doppler Study 12/21/18 13:04 CONCLUSION: 1. No deep venous thrombosis identified. 2. There is an area of superficial venous thrombosis in a varicosity which arises from the greater saphenous in the right upper thigh/groin region. Assessment and Plan (1) Acute GI bleeding Status: Acute Code(s): K92.2 - Gastrointestinal hemorrhage, unspecified (2) Symptomatic anemia Status: Acute Code(s): D64.9 - Anemia, unspecified (3) Aortic stenosis Status: Chronic Code(s): I35.0 - Nonrheumatic aortic (valve) stenosis (4) CAD (coronary artery disease) Status: Chronic Code(s): I25.10 - Atherosclerotic heart disease of [place] coronary artery without angina pectoris - Plan Patient is a pleasant 78-year-old female with past medical history significant for severe aortic stenosis, hyperlipidemia, obstructive sleep apnea and history of GERD. Patient was recently admitted to the hospital from 11/30/18 to 12/04/18. At that time she underwent a right heart cath which revealed proximal LAD stenosis of 80% and 95% in the mid LAD. At that time patient underwent balloon angioplasty with placement of drug-eluting stent in the proximal and mid left anterior descending coronary artery. That hospitalization apparently was complicated by a hematoma to the right groin. Patient then underwent groin exploration and repair of right common femoral artery on 12/01/2018. Patient was discharged on Plavix, aspirin and a statin. Upon consultation, patient endorses that she has felt dizzy and lightheaded with intermittent shortness of breath on exertion post procedure. She states that since her stent placement, she is experienced generalized weakness and fatigue. States she visited her primary care physician who put her on daily iron supplements. Patient endorses that she has noted black sticky tarry stools for the last 5 days. Patient denies use of NSAIDs other than aspirin 81 mg p.o. daily. She denies use of EtOH or tobacco products. Upon arrival, hemoglobin noted to be 5.9 hematocrit 18.7. Patient has been started on octreotide at 50 mcg as well as a pantoprazole infusion. Of note, patient's last EGD and colonoscopy was performed on 12/16/[address] Cottrell. EGD revealed gastritis, mild duodenitis, gastric polyps and distal esophagitis with a small hiatal hernia. Colonoscopy revealed diverticulosis with a polyp in the descending colon and hemorrhoids. Our service has been consulted to evaluate patient for GI bleeding and melanotic stools with symptomatic anemia GI bleeding with melanotic stools-patient endorses 5-day history of black tarry stools. Endorses accompanying generalized weakness and fatigue Symptomatic anemia Coronary artery disease--with recent placement of balloon angioplasty with drug- eluting stent in the proximal and mid left anterior descending coronary artery. --Recommending supportive treatment with blood transfusions to stabilize patient and keep hemoglobin greater than 7 Plan -Clear liquid diet -N.p.o. after midnight -Obtain consent for EGD -Anticoagulants as per cardiology -Cardiology clearance required for endoscopic procedure to be done tomorrow -Monitor hemoglobin and hematocrit closely -Monitor for active bleeding -Continue pantoprazole drip -Octreotide infusion -Transfuse as needed to keep hemoglobin above 7 -Supportive care -Further recommendations to follow This patient has been seen by myself and Dr. Nunez this note is written on his behalf - Attending Attestation Dr. Nunez (3) Aortic stenosis Qualifiers: (4) CAD (coronary artery disease) Qualifiers:
[2018-12-22] MEDS: Pantoprazole Inj 80 MG in Sodium Chlor 0.9% Inj 100 ML IV.CONT SCH ×5 (04:03→22:15)
--- NOTE | 2018-12-22 09:17 | P.PNIM ---
Subjective Interval history: pt hysterical this AM...very upset..says "something should be done by now regarding her condition. She is upset and feels dehydrated. She is upset and sitting in urine. She is upset regarding the previous admission where she tells me the bathroom available to her after [facility] was "dysfunctional" and had no hand rail to pull herself up. She feels the pain that developed then in her lower abdomen is responsible for her bleeding now. Physical Exam Vital signs: Last Vital Signs Temp 97.7 F 12/22/18 08:00 Pulse 83 12/22/18 08:00 Resp 18 12/22/18 08:00 BP 147/77 H 12/22/18 08:00 Pulse Ox 100 12/22/18 08:00 Narrative: GENERAL: NAD, AAOx3 SKIN: Warm and dry. HEENT: Atraumatic. Normocephalic. Pupils equal and round. No scleral icterus. No injection or drainage. No nasal bleeding or discharge. Mucous membranes pink and moist. NECK: Trachea midline. No JVD. CARDIO: Regular rate and rhythm. 4/6 EDUARDO RESP: No accessory muscle use. Clear to auscultation. Breath sounds equal bilaterally. ABD: +BS, soft, non-tender, nondistended. Hepatic and splenic margins not palpable. EXT: Extremities without clubbing, cyanosis, or edema. No obvious deformities. NEURO: Awake and alert. No obvious cranial nerve deficits. Motor grossly within normal limits. Five out of 5 muscle strength in the arms and legs. Normal speech. PSYCH: Appropriate mood and affect; insight and judgment normal. Results Labs CBC & Chem 7: 12/21/18 11:51 12/21/18 11:51 Assessment and Plan Assessment (1) Acute GI bleeding: Code(s): K92.2 - Gastrointestinal hemorrhage, unspecified Status: Acute (2) Symptomatic anemia: Code(s): D64.9 - Anemia, unspecified Status: Acute (3) Aortic stenosis: Code(s): I35.0 - Nonrheumatic aortic (valve) stenosis Status: Chronic (4) CAD (coronary artery disease): Code(s): I25.10 - Atherosclerotic heart disease of [place] coronary artery without angina pectoris Status: Chronic Plan Symptomatic anemia GIB - Pt is an 78 y/o female with severe aortic stenosis, hyperlipidemia, AYAZ, and hx of GERD. Pt was recently hospitalized from 11/30/18 to 12/04/18. She underwent a left and right heart cath on 11/30/18 which revealed proximal LAD stenosis of 80% and 95% in the mid LAD, the diagonal had a 30%-40% and patient underwent orbital rotational atherectomy, balloon angioplasty, drug-eluting stent in the proximal and mid left anterior descending coronary artery. Her hospital course was complicated by an expanding right groin hematoma status post PCI and underwent right groin exploration and repair of right common femoral artery on with Dr. Cheema. Pt was discharged on Plavix, ASA, statin. The BB was held due to hypotension. Following that admission and was started on iron supplements every other day due to anemia. Her labs prior to discharge noted Hgb 8.7/Hct 25.0. She had some diarrhea while on the iron supplements earlier this week and reported that the stool was "jet black" at that time. She held the iron supplements for the last 5-6 days. She reported that she has had some dizziness and orthostatic hypotension. She also noted some tightness in her chest over the last few days and increased weakness. This morning she had a BM and states that it was again "jet black." This prompted her evaluation in the ED. - Her labs in the ED noted Hgb 5.9/Hct 18.7. Pt was noted to be guaiac positive in the ED. - Her last EGD/colonoscopy was 12/16/[address] Cottrell which noted gastritis, mild duodenitis, gastric polyps, distal esophagitis, small hiatal hernia, diverticulosis, polyp in the descending colon and hemorrhoids. - Pt was started on Protonix gtt and Octreotide gtt in the ED - Stop the Octreotide and continue the Protonix gtt - Consulted GI for EGD - Case discussed with Dr. Hutchinson and secondary to the pts recent PCI with HAYDEN she is recommended to continue on the ASA and Plavix so these were resumed. - transfusion with 3 units of PRBCs 12/21 with lasix monitor h/h await EGD again cardiology was notified and consult pending. Severe Aortic Stenosis CAD Right groin hematoma - She recently underwent a left and right heart cath on 11/30/18 which revealed proximal LAD stenosis of 80% and 95% in the mid LAD, the diagonal had a 30%-40% and patient underwent orbital rotational atherectomy, balloon angioplasty, drug- eluting stent in the proximal and mid left anterior descending coronary artery. Her hospital course was complicated by an expanding right groin hematoma status post PCI and underwent right groin exploration and repair of right common femoral artery on 12/01/[address] Cheema. - - Pt was discharged on Plavix , ASA, statin. The BB was held due to hypotension. - Cont. home meds per discussion with Dr. Hutchinson due to pts HAYDEN - Pt was given IVF in the ED and is to receive transfusion with 3 units PRBCs, will monitor closely for volume overload - Consult placed to Dr. Hutchinson - Pt had been planned to have her bilateral groin sutures removed today, these are planned for removal by the ED Progress Note: Quality VTE Deep Vein Thrombosis/Pulmonary Embolism Present on Admission: No _ (1) Aortic stenosis Qualifiers: Cardiac valve disease etiology: (2) CAD (coronary artery disease) Qualifiers: Coronary Disease-Associated Artery/Lesion type: [place] vs. transplanted heart: Associated angina:
[2018-12-22 11:04] LABS: Baso % (Auto) 0.7 % (0.0-2.0); Eos # (Auto) 0.3 th/mm3 (0.0-0.4); Eos % (Auto) 4.3 % (0.0-4.0); Hematocrit 27.4 % (35.0-46.0); Hemoglobin 9.5 gm/dL (11.6-15.3); Lymph # (Auto) 1.1 th/mm3 (1.0-4.8); Lymph % (Auto) 16.3 % (9.0-44.0); Mean Corpuscular HGB Conc 34.6 % (32.0-36.0); Mean Corpuscular Hemoglobin 31.7 pg (27.0-34.0); Mean Corpuscular Volume 91.6 fL (80.0-100.0); Mean Platelet Volume 6.6 fL (7.0-11.0); Mono # (Auto) 0.5 th/mm3 (0.0-0.9); Mono % (Auto) 8.1 % (0.0-8.0); Neut # (Auto) 4.7 th/mm3 (1.8-7.7); Neut % (Auto) 70.6 % (16.0-70.0); Platelet Count 270 th/mm3 (150-450); Red Cell Distribution Width 16.2 % (11.6-17.2); White Blood Count 6.6 th/mm3 (4.0-11.0)
[2018-12-22 11:39] LABS: Alanine Aminotransferase 14 U/L (10-53); Albumin 3.3 g/dL (3.4-5.0); Anion Gap 10 meq/L (5-15); Aspartate Aminotransferase 17 U/L (15-37); Blood Urea Nitrogen 15 mg/dL (7-18); Calcium 7.9 mg/dL (8.5-10.1); Carbon Dioxide 26.4 meq/L (21.0-32.0); Chloride 107 meq/L (98-107); Glomerular Filtration Rate 66 mL/min (>89); Glucose,Random 120 mg/dL (74-106); Potassium 3.3 meq/L (3.5-5.1); Sodium 143 meq/L (136-145)
[2018-12-22 11:50] LABS: Alkaline Phosphatase 62 U/L (45-117); Total Protein 6.4 g/dL (6.4-8.2)
[2018-12-22] MEDS ORDERED: Potassium Bicarbonate 25 MEQ Effervescent Tablet PO ONE (15:00)
--- NOTE | 2018-12-22 18:30 | P.PNGI ---
Subjective Interval history: Patient seen and examined. Moving about room. No complaints. Has not been seen by cardiology yet. Feeling hungry. Denies abdominal pain. No nausea or vomiting. Received 3 units packed red blood cells overnight. Labs improving. <Rosemarie Flannery - Last Filed: 12/22/18 18:25> Physical Exam Vital signs: Vital Signs 12/21/18 18:29 12/21/18 20:00 12/21/18 22:14 Temperature 98.4 F 98.3 F 97.9 F Pulse Rate 80 76 Respiratory Rate 18 18 Blood Pressure 93/45 L 107/55 L 111/67 Pulse Oximetry 99 95 100 12/21/18 23:42 12/21/18 23:45 12/22/18 00:00 Temperature 97.8 F 97.8 F 97.8 F Pulse Rate 88 82 88 Respiratory Rate 19 18 18 Blood Pressure 115/64 115/64 115/64 Pulse Oximetry 100 100 100 12/22/18 00:01 12/22/18 02:40 12/22/18 02:57 Temperature 98.7 F 98.2 F 97.8 F Pulse Rate 74 80 67 Respiratory Rate 18 18 18 Blood Pressure 110/61 91/57 L 112/61 Pulse Oximetry 100 99 99 12/22/18 03:02 12/22/18 03:26 12/22/18 04:00 Temperature 98.5 F 98.0 F Pulse Rate 73 71 75 Respiratory Rate 20 18 Blood Pressure 112/64 121/72 Pulse Oximetry 98 99 12/22/18 04:50 12/22/18 08:00 12/22/18 12:00 Temperature 97.6 F 97.7 F 98.1 F Pulse Rate 75 83 75 Respiratory Rate 18 18 18 Blood Pressure 109/57 L 147/77 H 131/72 Pulse Oximetry 93 L 100 98 12/22/18 16:00 Temperature 98.1 F Pulse Rate 90 Respiratory Rate 18 Blood Pressure 112/69 Pulse Oximetry 98 Intake & Output 12/21/18 12/22/18 12/22/18 18:59 06:59 18:59 Intake Total 135 / 135 1560 / 1560 100 / 100 Output Total 1650 / 1650 Balance 135 / 135 -90 / -90 100 / 100 Weight 83.91 kg 82.2 kg Intake: IV 35 / 35 100 / 100 100 / 100 Protonix Inj 80 MG In NS Inj 100 / 100 100 / 100 100 ML @ 10 mls/hr IV.CONT Q10H JAIMIE Rx#:[id number] Protonix Inj 80 MG In NS Inj 35 35 / 35 ML @ 600 mls/hr IV.SIG BOLUS ONE Rx#:[id number] Oral 360 / 360 Intake (Blood Product) Amt 100 / 100 1100 / 1100 Rbc As-3 Leukoreduced Unit 400 / 400 [id number] Rbc As-3 Leukoreduced Unit 100 / 100 300 / 300 [id number] Rbc As-3 Leukoreduced Unit 400 / 400 [id number] Output: Urine 1650 / 1650 Other: Date of Last Bowel Movement 12/21/18 # Bowel Movements 0 Weight On Admission 160.02 kg <Rosemarie Flannery - Last Filed: 12/22/18 18:25> Vital signs: Vital Signs 12/21/18 22:14 12/21/18 23:42 12/21/18 23:45 Temperature 97.9 F 97.8 F 97.8 F Pulse Rate 76 88 82 Respiratory Rate 18 19 18 Blood Pressure 111/67 115/64 115/64 Pulse Oximetry 100 100 100 12/22/18 00:00 12/22/18 00:01 12/22/18 02:40 Temperature 97.8 F 98.7 F 98.2 F Pulse Rate 88 74 80 Respiratory Rate 18 18 18 Blood Pressure 115/64 110/61 91/57 L Pulse Oximetry 100 100 99 12/22/18 02:57 12/22/18 03:02 12/22/18 03:26 Temperature 97.8 F 98.5 F 98.0 F Pulse Rate 67 73 71 Respiratory Rate 18 20 18 Blood Pressure 112/61 112/64 121/72 Pulse Oximetry 99 98 99 12/22/18 04:00 12/22/18 04:50 12/22/18 08:00 Temperature 97.6 F 97.7 F Pulse Rate 75 75 72 Respiratory Rate 18 18 Blood Pressure 109/57 L 147/77 H Pulse Oximetry 93 L 100 12/22/18 12:00 12/22/18 16:00 12/22/18 19:15 Temperature 98.1 F 98.1 F Pulse Rate 79 90 77 Respiratory Rate 18 18 Blood Pressure 131/72 112/69 Pulse Oximetry 98 98 12/22/18 20:00 Temperature 97.9 F Pulse Rate 82 Respiratory Rate 16 Blood Pressure 123/60 Pulse Oximetry 100 Intake & Output 12/22/18 12/22/18 12/23/18 06:59 18:59 06:59 Intake Total 1560 / 1560 100 / 100 Output Total 1650 / 1650 Balance -90 / -90 100 / 100 Weight 82.2 kg Intake: IV 100 / 100 100 / 100 Protonix Inj 80 MG In NS Inj 100 / 100 100 / 100 100 ML @ 10 mls/hr IV.CONT Q10H [facility] Rx#:[id number] Oral 360 / 360 Intake (Blood Product) Amt 1100 / 1100 Rbc As-3 Leukoreduced Unit 400 / 400 [id number] Rbc As-3 Leukoreduced Unit 300 / 300 [id number] Rbc As-3 Leukoreduced Unit 400 / 400 [id number] Output: Urine 1650 / 1650 Other: Date of Last Bowel Movement 12/21/18 # Bowel Movements 0 <Tirso Canada E - Last Filed: 12/22/18 22:04> Results - Labs CBC & Chem 7: 12/22/18 09:40 12/22/18 09:40 Laboratory Results - last 24 hr 12/21/18 12/22/18 12/22/18 11:57 09:40 09:40 WBC 6.6 RBC 3.00 L Hgb 9.5 L D Hct 27.4 L MCV 91.6 D MCH 31.7 MCHC 34.6 RDW 16.2 Plt Count 270 MPV 6.6 L Neut % (Auto) 70.6 H Lymph % (Auto) 16.3 [place] % (Auto) 8.1 H Eos % (Auto) 4.3 H Baso % (Auto) 0.7 Neut # (Auto) 4.7 Lymph # (Auto) 1.1 [place] # (Auto) 0.5 Eos # (Auto) 0.3 Baso # (Auto) 0.0 WBC Differential . Differential Comment Auto diff final Sodium 143 Potassium 3.3 L Chloride 107 Carbon Dioxide 26.4 Anion Gap 10 BUN 15 Creatinine 0.83 Estimated GFR 66 L Random Glucose 120 H Calcium 7.9 L Total Bilirubin 4.0 H AST 17 ALT 14 Alkaline Phosphatase 62 Total Protein 6.4 Albumin 3.3 L Blood Type O Negative Antibody Screen Negative MTS Gel Crossmatch See Detail <PrudencioRosemarie Junior - Last Filed: 12/22/18 18:25> - Labs CBC & Chem 7: 12/22/18 21:18 12/22/18 09:40 Laboratory Results - last 24 hr 12/21/18 12/22/18 12/22/18 11:57 09:40 09:40 WBC 6.6 RBC 3.00 L Hgb 9.5 L D Hct 27.4 L MCV 91.6 D MCH 31.7 MCHC 34.6 RDW 16.2 Plt Count 270 MPV 6.6 L Neut % (Auto) 70.6 H Lymph % (Auto) 16.3 [place] % (Auto) 8.1 H Eos % (Auto) 4.3 H Baso % (Auto) 0.7 Neut # (Auto) 4.7 Lymph # (Auto) 1.1 [place] # (Auto) 0.5 Eos # (Auto) 0.3 Baso # (Auto) 0.0 WBC Differential . Differential Comment Auto diff final Sodium 143 Potassium 3.3 L Chloride 107 Carbon Dioxide 26.4 Anion Gap 10 BUN 15 Creatinine 0.83 Estimated GFR 66 L Random Glucose 120 H Calcium 7.9 L Total Bilirubin 4.0 H AST 17 ALT 14 Alkaline Phosphatase 62 Total Protein 6.4 Albumin 3.3 L Blood Type O Negative Antibody Screen Negative MTS Gel Crossmatch See Detail 12/22/18 21:18 WBC RBC Hgb 10.0 L Hct MCV MCH MCHC RDW Plt Count MPV Neut % (Auto) Lymph % (Auto) [place] % (Auto) Eos % (Auto) Baso % (Auto) Neut # (Auto) Lymph # (Auto) [place] # (Auto) Eos # (Auto) Baso # (Auto) WBC Differential Differential Comment Sodium Potassium Chloride Carbon Dioxide Anion Gap BUN Creatinine Estimated GFR Random Glucose Calcium Total Bilirubin AST ALT Alkaline Phosphatase Total Protein Albumin Blood Type Antibody Screen MTS Gel Crossmatch <Tirso Canada - Last Filed: 12/22/18 22:04> Assessment and Plan (1) Acute GI bleeding Status: Acute Code(s): K92.2 - Gastrointestinal hemorrhage, unspecified (2) Symptomatic anemia Status: Acute Code(s): D64.9 - Anemia, unspecified (3) Aortic stenosis Status: Chronic Code(s): I35.0 - Nonrheumatic aortic (valve) stenosis (4) CAD (coronary artery disease) Status: Chronic Code(s): I25.10 - Atherosclerotic heart disease of [place] coronary artery without angina pectoris - Plan Patient is a pleasant 78-year-old female with past medical history significant for severe aortic stenosis, hyperlipidemia, obstructive sleep apnea and history of GERD. Patient was recently admitted to the hospital from 11/30/18 to 12/04/18. At that time she underwent a right heart cath which revealed proximal LAD stenosis of 80% and 95% in the mid LAD. At that time patient underwent balloon angioplasty with placement of drug-eluting stent in the proximal and mid left anterior descending coronary artery. That hospitalization apparently was complicated by a hematoma to the right groin. Patient then underwent groin exploration and repair of right common femoral artery on 12/01/2018. Patient was discharged on Plavix, aspirin and a statin. Upon consultation, patient endorses that she has felt dizzy and lightheaded with intermittent shortness of breath on exertion post procedure. She states that since her stent placement, she is experienced generalized weakness and fatigue. States she visited her primary care physician who put her on daily iron supplements. Patient endorses that she has noted black sticky tarry stools for the last 5 days. Patient denies use of NSAIDs other than aspirin 81 mg p.o. daily. She denies use of EtOH or tobacco products. Upon arrival, hemoglobin noted to be 5.9 hematocrit 18.7. Patient has been started on octreotide at 50 mcg as well as a pantoprazole infusion. Of note, patient's last EGD and colonoscopy was performed on 12/16/[address] Cottrell. EGD revealed gastritis, mild duodenitis, gastric polyps and distal esophagitis with a small hiatal hernia. Colonoscopy revealed diverticulosis with a polyp in the descending colon and hemorrhoids. Our service has been consulted to evaluate patient for GI bleeding and melanotic stools with symptomatic anemia GI bleeding with melanotic stools-patient endorses 5-day history of black tarry stools. Endorses accompanying generalized weakness and fatigue Symptomatic anemia Coronary artery disease--with recent placement of balloon angioplasty with drug- eluting stent in the proximal and mid left anterior descending coronary artery. --Recommending supportive treatment with blood transfusions to stabilize patient and keep hemoglobin greater than 7 Plan -Clear liquid diet -N.p.o. after midnight -Obtain consent for EGD -Anticoagulants as per cardiology -Cardiology clearance required for endoscopic procedure to be done tomorrow -Monitor hemoglobin and hematocrit closely -Monitor for active bleeding -Continue pantoprazole drip -Octreotide infusion -Transfuse as needed to keep hemoglobin above 7 -Supportive care -Further recommendations to follow This patient has been seen by myself and Dr. Nunez this note is written on his behalf 12/22/2018 GI bleeding with melanotic stools-patient endorses 5-day history of black tarry stools. Endorses accompanying generalized weakness and fatigue Symptomatic anemia-status post 3 units packed red blood cells. Hemoglobin and hematocrit improved to 9.5/27.4 Coronary artery disease--with recent placement of balloon angioplasty with drug- eluting stent in the proximal and mid left anterior descending coronary artery. --Recommending supportive treatment with blood transfusions to stabilize patient and keep hemoglobin greater than 7 Plan -Cardiac diet -N.p.o. after midnight -Obtain consent for EGD -Anticoagulants as per cardiology -Cardiology clearance required for endoscopic procedure to be done tomorrow -Monitor hemoglobin and hematocrit closely -Monitor for active bleeding -Continue pantoprazole drip -Transfuse as needed to keep hemoglobin above 7 -Supportive care -Further recommendations to follow Patient was seen and examined by myself and Dr. [place] and this note is written on his behalf. <Rosemarie Flannery C - Last Filed: 12/22/18 18:25> (1) Acute GI bleeding Status: Acute Code(s): K92.2 - Gastrointestinal hemorrhage, unspecified (2) Symptomatic anemia Status: Acute Code(s): D64.9 - Anemia, unspecified (3) Aortic stenosis Status: Chronic Code(s): I35.0 - Nonrheumatic aortic (valve) stenosis (4) CAD (coronary artery disease) Status: Chronic Code(s): I25.10 - Atherosclerotic heart disease of [place] coronary artery without angina pectoris - Attending Attestation Patient seen and examined Agree with above Continue with current supportive care Monitor labs I had a lengthy discussion with the patient and her son if there appears to be any active bleeding or any decline in hemoglobin we will pursue endoscopy tomorrow otherwise it will be on Monday <Tirso Canada E - Last Filed: 12/22/18 22:04> <Tirso Canada E - Last Filed: 12/22/18 22:04> (3) Aortic stenosis Qualifiers: (4) CAD (coronary artery disease) Qualifiers:
--- NOTE | 2018-12-22 19:04 | P.CONCA ---
History of Present Illness Service: Recent HAYDEN of LAD. GIB Consult date: 12/22/18 Requesting Physician: Sheldon Evans Primary Care Provider: Eugenio Mcneil MD Chief Complaint: GI bleed History of Present Illness: Mrs. Gonzalez is a pleasant 78 y/o lady, patient of Dr. Sergio Hutchinson, presented emergency room today because of progressive worsening black stools found to have severe anemia with hemoglobin of 5.9 hematocrit 18.7. Overnight she was transfused with 3 units blood. Current hemoglobin 9.5. she was recently hospitalized from 11/30/18 to 12/04/18. underwent LAD stenting with a HAYDEN on 11/30/18, postprocedure, she developed right groin hematoma required surgical repair on 12/01/[address] Cheema. Pt was discharged on Plavix , ASA, statin. GI specialty development consultant planning to do EGD, ask for cardiac clearance Past Medical Hx: Severe aortic stenosis, be evaluated for TAVR CAD as mentioned above hyperlipidemia GERD, hiatal hernia, history of small-bowel obstruction chronic back pain [place] shoulder surgery Family Hx: Noncontributory Social Hx: Remote hx of tobacco use, quit when she was 35 y/o Denies any alcohol use or illicit drug use PMFSH - History History Provided By: Patient - Medical History Medical History: Medical History (Last Reviewed 12/21/18 @ 13:06 by SHAMIR Crockett) Aortic stenosis Femoral artery hematoma complicating cardiac catheterization GERD (gastroesophageal reflux disease) Hiatal hernia with GERD Hyperlipidemia Murmur, heart - Surgical History Surgical History: Surgical History (Last Reviewed 12/21/18 @ 13:06 by SHAMIR Crockett) H/O abdominal surgery H/O eye surgery H/O heart artery stent H/O hernia repair H/O parathyroidectomy H/O shoulder surgery H/O total knee replacement H/O tubal ligation History of appendectomy - Tobacco History Second Hand Smoke Exposure: No Tobacco Use In Past 30 Days: No Smoking Status: Former smoker Tobacco Type: Cigarettes - Alcohol History How Often Do You Have a Drink Containing Alcohol: Never - Substance Use History Substance History: No History of Abuse - Travel History Recent Travel in the [place] Within the Last 8 Weeks: No Recent Travel Out of the Country Within the Last 8 Weeks: No - Immunization History Tetanus Immunization: <5 Years Medications and Allergies Active Medications: Active Medications Acetaminophen (Tylenol) 650 mg PO Q4H PRN PRN Reason: Temp > 100.4 Al Hydroxide/Mg Hydroxide (Milk Of Leanne Liq) 30 ml PO Q12H PRN PRN Reason: Mild Constipation Aspirin (Aspirin Chew) 81 mg PO HS [facility] Last Admin: 12/21/18 20:55 Dose: 81 mg Atorvastatin Calcium (Lipitor) 80 mg PO HS [facility] Last Admin: 12/21/18 20:55 Dose: 80 mg Clopidogrel Bisulfate (Plavix) 75 mg PO DAILY [facility] Last Admin: 12/22/18 14:04 Dose: 75 mg Furosemide (Lasix Inj) 20 mg IV.PUSH [employer] [facility] Last Admin: 12/22/18 02:44 Dose: 20 mg Pantoprazole Sodium 80 mg/ (Sodium Chloride) 100 mls @ 10 mls/hr IV.CONT Q10H [facility] Last Admin: 12/22/18 13:04 Dose: 10 mls/hr Ondansetron HCl (Zofran Inj) 4 mg IV.PUSH Q6H PRN PRN Reason: NAUSEA OR VOMITING Sodium Chloride (Ns Flush) 2 ml IV.FLUSH UNSCH PRN PRN Reason: FLUSH AFTER USING IV ACCESS Last Admin: 12/21/18 12:09 Dose: 2 ml Sodium Chloride (Ns Flush) 2 ml IV.FLUSH BID [facility] Last Admin: 12/22/18 09:01 Dose: Not Given Sodium Chloride (Ns Flush) 2 ml IV.FLUSH PRN PRN PRN Reason: FLUSH AFTER USING IV ACCESS Allergies Allergy/AdvReac Type Severity Reaction Status Date / Time No Known Allergies Allergy Verified 12/21/18 11:32 Home Medications Medication Instructions Recorded Confirmed Type cholecalciferol (vitamin D3) 2,000 unit PO DAILY 11/30/18 12/21/18 History [Vitamin D3] [id number] oil 1 cap PO DAILY 11/30/18 12/21/18 History [[place]-3 (with dpa)] aspirin 81 mg PO HS 12/21/18 12/21/18 History Exam Vital signs: Vital Signs 12/21/18 20:00 12/21/18 22:14 12/21/18 23:42 Temperature 98.3 F 97.9 F 97.8 F Pulse Rate 80 76 88 Respiratory Rate 18 18 19 Blood Pressure 107/55 L 111/67 115/64 Pulse Oximetry 95 100 100 12/21/18 23:45 12/22/18 00:00 12/22/18 00:01 Temperature 97.8 F 97.8 F 98.7 F Pulse Rate 82 88 74 Respiratory Rate 18 18 18 Blood Pressure 115/64 115/64 110/61 Pulse Oximetry 100 100 100 12/22/18 02:40 12/22/18 02:57 12/22/18 03:02 Temperature 98.2 F 97.8 F 98.5 F Pulse Rate 80 67 73 Respiratory Rate 18 18 20 Blood Pressure 91/57 L 112/61 112/64 Pulse Oximetry 99 99 98 12/22/18 03:26 12/22/18 04:00 12/22/18 04:50 Temperature 98.0 F 97.6 F Pulse Rate 71 75 75 Respiratory Rate 18 18 Blood Pressure 121/72 109/57 L Pulse Oximetry 99 93 L 12/22/18 08:00 12/22/18 12:00 12/22/18 16:00 Temperature 97.7 F 98.1 F 98.1 F Pulse Rate 83 75 90 Respiratory Rate 18 18 18 Blood Pressure 147/77 H 131/72 112/69 Pulse Oximetry 100 98 98 Intake & Output 12/22/18 12/22/18 12/23/18 06:59 18:59 06:59 Intake Total 1560 / 1560 100 / 100 Output Total 1650 / 1650 Balance -90 / -90 100 / 100 Weight 82.2 kg Intake: IV 100 / 100 100 / 100 Protonix Inj 80 MG In NS Inj 100 / 100 100 / 100 100 ML @ 10 mls/hr IV.CONT Q10H [facility] Rx#:[id number] Oral 360 / 360 Intake (Blood Product) Amt 1100 / 1100 Rbc As-3 Leukoreduced Unit 400 / 400 [id number] Rbc As-3 Leukoreduced Unit 300 / 300 [id number] Rbc As-3 Leukoreduced Unit 400 / 400 [id number] Output: Urine 1650 / 1650 Other: Date of Last Bowel Movement 12/21/18 # Bowel Movements 0 - Constitutional no acute distress - Routine HEENT Exam Head: Present: normocephalic, atraumatic Eye: Present: EOMI, PERRL, normal accommodation, conjunctivae pink - Routine Neck Exam Present: supple, full ROM, carotid bruit ( bilaterally). Absent: JVD - Routine Respiratory Exam Present: CTA bilaterally - Routine Cardiovascular Exam Present: RRR, S1, S2, murmur (3/6 RSb systolic murmur extending to apex.), S3, S4 - Routine Abdominal Exam Present: soft, normoactive bowel sounds - Routine Skin Exam Present: intact - Routine Neurological Exam Present: alert, oriented X3, CN II-XII intact Results 12/22/18 21:18 12/22/18 09:40 Cardiac Enzymes 12/21/18 12/21/18 12/22/18 Range/Units 11:51 11:51 09:40 AST 13 L 17 (15-37) U/L Troponin I Less than 0.02 L (0.02-0.05) ng/mL B-Natriuretic Peptide 128 H (0-100) pg/mL Coagulation 12/21/18 12/21/18 Range/Units 11:51 11:51 PT 10.5 (9.8-11.6) sec APTT 26.1 (23.4-31.7) sec B-Natriuretic Peptide 128 H (0-100) pg/mL CBC 12/21/18 12/22/18 Range/Units 11:51 09:40 WBC 6.3 6.6 (4.0-11.0) th/mm3 RBC 1.89 L 3.00 L (4.00-5.30) mil/mm3 Hgb 5.9 L* 9.5 L D (11.6-15.3) gm/dL Hct 18.7 L* 27.4 L (35.0-46.0) % Plt Count 299 D 270 (150-450) th/mm3 Neut # (Auto) 4.2 4.7 (1.8-7.7) th/mm3 Lymph # (Auto) 1.5 1.1 (1.0-4.8) th/mm3 [place] # (Auto) 0.5 0.5 (0.0-0.9) th/mm3 Eos # (Auto) 0.1 0.3 (0.0-0.4) th/mm3 Baso # (Auto) 0.0 0.0 (0.0-0.2) th/mm3 Comprehensive Metabolic Panel 12/21/18 12/22/18 Range/Units 11:51 09:40 Sodium 141 143 (136-145) meq/L Potassium 3.4 L 3.3 L (3.5-5.1) meq/L Chloride 108 H 107 (98-107) meq/L Carbon Dioxide 23.6 26.4 (21.0-32.0) meq/L BUN 18 15 (7-18) mg/dL Creatinine 0.71 0.83 (0.50-1.00) mg/dL Calcium 8.3 L 7.9 L (8.5-10.1) mg/dL AST 13 L 17 (15-37) U/L ALT 17 14 (10-53) U/L Alkaline Phosphatase 58 62 (45-117) U/L Total Protein 6.3 L 6.4 (6.4-8.2) g/dL Albumin 3.3 L 3.3 L (3.4-5.0) g/dL Intake and Output 12/22/18 12/22/18 12/22/18 06:59 14:59 22:59 Intake Total 1260 / 1260 100 / 100 Output Total 1650 / 1650 Balance -390 / -390 100 / 100 Intake: IV 100 / 100 100 / 100 Protonix Inj 80 MG In NS Inj 100 / 100 100 / 100 100 ML @ 10 mls/hr IV.CONT Q10H [facility] Rx#:[id number] Oral 360 / 360 Intake (Blood Product) Amt 800 / 800 Rbc As-3 Leukoreduced Unit 400 / 400 [id number] Rbc As-3 Leukoreduced Unit 400 / 400 [id number] Output: Urine 1650 / 1650 Other: # Bowel Movements 0 Weight 82.2 kg - Imaging and Cardiology Imaging: Impressions Chest X-Ray 12/21/18 12:04 CONCLUSION: Mild compensated cardiomegaly Venous Doppler Study 12/21/18 13:04 CONCLUSION: 1. No deep venous thrombosis identified. 2. There is an area of superficial venous thrombosis in a varicosity which arises from the greater saphenous in the right upper thigh/groin region. Assessment and Plan - Assessment (1) Acute GI bleeding Code(s): K92.2 - Gastrointestinal hemorrhage, unspecified Status: Acute (2) Symptomatic anemia Code(s): D64.9 - Anemia, unspecified Status: Acute (3) Aortic stenosis Code(s): I35.0 - Nonrheumatic aortic (valve) stenosis Status: Chronic (4) Diastolic heart failure Code(s): I50.30 - Unspecified diastolic (congestive) heart failure Status: Acute (5) CAD (coronary artery disease) Code(s): I25.10 - Atherosclerotic heart disease of [place] coronary artery without angina pectoris Status: Chronic - Plan Symptomatic anemia, GIB, black stools HB up to 9.5 from 5.9. Will repeat HB, if stable, continue Aspirin. Will hold Plavix for now. okay to proceed EGD and any other GI procedure which can help identify source for GI bleed okay from cardiology standpoint. CAD LAD HAYDEN 11/30/18, acute GIB, HB up to 9.5 from 5.9. Will repeat HB, if stable, continue Aspirin. Will hold Plavix for now. Right groin hematoma status post surgical repair severe aortic stenosis pending TAVR (3) Aortic stenosis Qualifiers: (4) Diastolic heart failure Qualifiers: Heart failure chronicity: acute on chronic Qualified Code(s): I50.33 - Acute on chronic diastolic (congestive) heart failure (5) CAD (coronary artery disease) Qualifiers:
--- NOTE | 2018-12-22 21:33 | ECG ---
Date Performed: 12/21/2018 Time Performed: 11:12:22 PTAGE: 78 years EKG: Sinus rhythm NORMAL ECG Since the PREVIOUS TRACING , no significant change noted DOCTOR: Celsa Montenegro Interpretating Date/Time 12/22/2018 21:31:25
[2018-12-23] MEDS: Pantoprazole Inj 80 MG in Sodium Chlor 0.9% Inj 100 ML IV.CONT SCH ×4 (04:00→21:40)
[2018-12-23 09:56] LABS: Baso % (Auto) 0.5 % (0.0-2.0); Eos # (Auto) 0.2 th/mm3 (0.0-0.4); Eos % (Auto) 2.9 % (0.0-4.0); Hemoglobin 9.6 gm/dL (11.6-15.3); Lymph # (Auto) 1.1 th/mm3 (1.0-4.8); Lymph % (Auto) 13.9 % (9.0-44.0); Mean Corpuscular HGB Conc 34.3 % (32.0-36.0); Mean Corpuscular Hemoglobin 31.9 pg (27.0-34.0); Mean Corpuscular Volume 92.9 fL (80.0-100.0); Mean Platelet Volume 6.4 fL (7.0-11.0); Mono # (Auto) 0.6 th/mm3 (0.0-0.9); Mono % (Auto) 7.3 % (0.0-8.0); Neut # (Auto) 5.9 th/mm3 (1.8-7.7); Neut % (Auto) 75.4 % (16.0-70.0); Platelet Count 243 th/mm3 (150-450); Red Blood Count 3.01 mil/mm3 (4.00-5.30); Red Cell Distribution Width 16.7 % (11.6-17.2); White Blood Count 7.8 th/mm3 (4.0-11.0)
--- NOTE | 2018-12-23 10:12 | P.PNCA ---
Subjective Interval history: Tolerated dinner last night, tolerated breakfast this morning. HB stable 9.6 Medications and Allergies Active Medications: Active Medications Acetaminophen (Tylenol) 650 mg PO Q4H PRN PRN Reason: Temp > 100.4 Al Hydroxide/Mg Hydroxide (Milk Of Leanne Broussard) 30 ml PO Q12H PRN PRN Reason: Mild Constipation Aspirin (Aspirin Chew) 81 mg PO [facility] Last Admin: 12/22/18 20:04 Dose: 81 mg Atorvastatin Calcium (Lipitor) 80 mg PO HS [facility] Last Admin: 12/22/18 20:04 Dose: 80 mg Clopidogrel Bisulfate (Plavix) 75 mg PO DAILY [facility] Last Admin: 12/23/18 08:15 Dose: 75 mg Furosemide (Lasix Inj) 20 mg 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 [facility] Last Admin: 12/22/18 02:44 Dose: 20 mg Pantoprazole Sodium 80 mg/ (Sodium Chloride) 100 mls @ 10 mls/hr IV.CONT Q10H [facility] Last Admin: 12/23/18 08:15 Dose: 10 mls/hr Ondansetron HCl (Zofran Inj) 4 mg IV.PUSH Q6H PRN PRN Reason: NAUSEA OR VOMITING Sodium Chloride (Ns Flush) 2 ml IV.FLUSH UNSCH PRN PRN Reason: FLUSH AFTER USING IV ACCESS Last Admin: 12/21/18 12:09 Dose: 2 ml Sodium Chloride (Ns Flush) 2 ml IV.FLUSH BID [facility] Last Admin: 12/23/18 09:00 Dose: Not Given Sodium Chloride (Ns Flush) 2 ml IV.FLUSH PRN PRN PRN Reason: FLUSH AFTER USING IV ACCESS Allergies Allergy/AdvReac Type Severity Reaction Status Date / Time No Known Allergies Allergy Verified 12/21/18 11:32 Home Medications Medication Instructions Recorded Confirmed Type cholecalciferol (vitamin D3) 2,000 unit PO DAILY 11/30/18 12/21/18 History [Vitamin D3] cguwt-[id number]-[id number]-jda-blzh oil 1 cap PO DAILY 11/30/18 12/21/18 History [[place]-3 (with dpa)] aspirin 81 mg PO HS 12/21/18 12/21/18 History Physical Exam Vital signs: Vital Signs 12/22/18 12:00 12/22/18 16:00 12/22/18 19:15 Temperature 98.1 F 98.1 F Pulse Rate 79 90 77 Respiratory Rate 18 18 Blood Pressure 131/72 112/69 Pulse Oximetry 98 98 12/22/18 20:00 12/23/18 00:00 12/23/18 04:00 Temperature 97.9 F 97.8 F 97.9 F Pulse Rate 81 74 101 H Respiratory Rate 16 16 16 Blood Pressure 123/60 104/56 L 116/56 L Pulse Oximetry 100 98 100 12/23/18 08:00 Temperature 98.5 F Pulse Rate 76 Respiratory Rate 18 Blood Pressure 109/53 L Pulse Oximetry 100 Intake & Output 12/22/18 12/23/18 12/23/18 18:59 06:59 18:59 Intake Total 100 / 100 340 / 340 100 / 100 Balance 100 / 100 340 / 340 100 / 100 Weight 161.01 kg Intake: IV 100 / 100 100 / 100 100 / 100 Protonix Inj 80 MG In NS Inj 100 / 100 100 / 100 100 / 100 100 ML @ 10 mls/hr IV.CONT Q10H [facility] Rx#:[id number] Oral 240 / 240 Other: # Voids 2 Date of Last Bowel Movement 12/22/18 - Constitutional no acute distress - Routine HEENT Exam Head: Present: normocephalic, atraumatic ENT: Present: mucous membranes moist - Routine Neck Exam Present: supple, full ROM. Absent: JVD, carotid bruit - Routine Respiratory Exam Present: CTA bilaterally - Routine Cardiovascular Exam Present: RRR, S1, S2 - Routine Abdominal Exam Present: soft, normoactive bowel sounds - Routine Extremities Exam Present: full ROM, normal capillary refill. Absent: edema - Routine Skin Exam Present: intact, dry, warm - Routine Neurological Exam Present: alert, oriented X3, CN II-XII intact - Routine Psychiatric Exam Present: normal affect Results 12/23/18 08:30 12/23/18 08:50 Cardiac Enzymes 12/21/18 12/21/18 12/22/18 Range/Units 11:51 11:51 09:40 AST 13 L 17 (15-37) U/L Troponin I Less than 0.02 L (0.02-0.05) ng/mL B-Natriuretic Peptide 128 H (0-100) pg/mL Coagulation 12/21/18 12/21/18 Range/Units 11:51 11:51 PT 10.5 (9.8-11.6) sec APTT 26.1 (23.4-31.7) sec B-Natriuretic Peptide 128 H (0-100) pg/mL CBC 12/21/18 12/22/18 12/22/18 Range/Units 11:51 09:40 21:18 WBC 6.3 6.6 (4.0-11.0) th/mm3 RBC 1.89 L 3.00 L (4.00-5.30) mil/mm3 Hgb 5.9 L* 9.5 L D 10.0 L (11.6-15.3) gm/dL Hct 18.7 L* 27.4 L (35.0-46.0) % Plt Count 299 D 270 (150-450) th/mm3 Neut # (Auto) 4.2 4.7 (1.8-7.7) th/mm3 Lymph # (Auto) 1.5 1.1 (1.0-4.8) th/mm3 [place] # (Auto) 0.5 0.5 (0.0-0.9) th/mm3 Eos # (Auto) 0.1 0.3 (0.0-0.4) th/mm3 Baso # (Auto) 0.0 0.0 (0.0-0.2) th/mm3 12/23/18 Range/Units 08:30 WBC 7.8 (4.0-11.0) th/mm3 RBC 3.01 L (4.00-5.30) mil/mm3 Hgb 9.6 L (11.6-15.3) gm/dL Hct 28.0 L (35.0-46.0) % Plt Count 243 (150-450) th/mm3 Neut # (Auto) 5.9 (1.8-7.7) th/mm3 Lymph # (Auto) 1.1 (1.0-4.8) th/mm3 [place] # (Auto) 0.6 (0.0-0.9) th/mm3 Eos # (Auto) 0.2 (0.0-0.4) th/mm3 Baso # (Auto) 0.0 (0.0-0.2) th/mm3 Comprehensive Metabolic Panel 12/21/18 12/22/18 Range/Units 11:51 09:40 Sodium 141 143 (136-145) meq/L Potassium 3.4 L 3.3 L (3.5-5.1) meq/L Chloride 108 H 107 (98-107) meq/L Carbon Dioxide 23.6 26.4 (21.0-32.0) meq/L BUN 18 15 (7-18) mg/dL Creatinine 0.71 0.83 (0.50-1.00) mg/dL Calcium 8.3 L 7.9 L (8.5-10.1) mg/dL AST 13 L 17 (15-37) U/L ALT 17 14 (10-53) U/L Alkaline Phosphatase 58 62 (45-117) U/L Total Protein 6.3 L 6.4 (6.4-8.2) g/dL Albumin 3.3 L 3.3 L (3.4-5.0) g/dL Intake and Output 12/22/18 12/23/18 12/23/18 22:59 06:59 14:59 Intake Total 100 / 100 240 / 240 100 / 100 Balance 100 / 100 240 / 240 100 / 100 Intake: IV 100 / 100 100 / 100 Protonix Inj 80 MG In NS Inj 100 / 100 100 / 100 100 ML @ 10 mls/hr IV.CONT Q10H [facility] Rx#:[id number] Oral 240 / 240 Other: # Voids 2 Date of Last Bowel Movement 12/22/18 Weight 161.01 kg - Imaging and Cardiology Imaging: Impressions Chest X-Ray 12/21/18 12:04 CONCLUSION: Mild compensated cardiomegaly Venous Doppler Study 12/21/18 13:04 CONCLUSION: 1. No deep venous thrombosis identified. 2. There is an area of superficial venous thrombosis in a varicosity which arises from the greater saphenous in the right upper thigh/groin region. Assessment and Plan - Assessment (1) Acute GI bleeding Code(s): K92.2 - Gastrointestinal hemorrhage, unspecified Status: Acute (2) Symptomatic anemia Code(s): D64.9 - Anemia, unspecified Status: Acute (3) Aortic stenosis Code(s): I35.0 - Nonrheumatic aortic (valve) stenosis Status: Chronic (4) Diastolic heart failure Code(s): I50.30 - Unspecified diastolic (congestive) heart failure Status: Acute (5) CAD (coronary artery disease) Code(s): I25.10 - Atherosclerotic heart disease of [place] coronary artery without angina pectoris Status: Chronic - Plan Symptomatic anemia, GIB, black stools 12/22/18 HB up to 9.5 from 5.9. Will repeat HB, if stable, continue Aspirin. Will hold Plavix for now. okay to proceed EGD and any other GI procedure which can help identify source for GI bleed okay from cardiology standpoint. 12/23/18: Hemoglobin stable. 9.6 this morning. Currently on aspirin. No Plavix. She tolerated dinner last night, and she enjoyed breakfast this morning. GI is following. CAD LAD HAYDEN 11/30/18, acute GIB, Initiate hemoglobin 5.9. 3 unit of blood transfused. Hemoglobin has been stable yesterday and this morning. continue Aspirin. Will hold Plavix for now. Right groin hematoma status post surgical repair severe aortic stenosis pending TAVR CP Cardiology will resume the care of this patient tomorrow. (3) Aortic stenosis Qualifiers: (4) Diastolic heart failure Qualifiers: Heart failure chronicity: acute on chronic Qualified Code(s): I50.33 - Acute on chronic diastolic (congestive) heart failure (5) CAD (coronary artery disease) Qualifiers:
[2018-12-23 10:20] LABS: Calcium 8.3 mg/dL (8.5-10.1); Potassium 3.6 meq/L (3.5-5.1)
--- NOTE | 2018-12-23 10:52 | P.PNIM ---
Subjective Interval history: pt asking for regular food while awaiting egd. defer to GI. Physical Exam Vital signs: Last Vital Signs Temp 98.5 F 12/23/18 08:00 Pulse 76 12/23/18 08:00 Resp 18 12/23/18 08:00 BP 109/53 L 12/23/18 08:00 Pulse Ox 99 12/23/18 08:00 Narrative: GENERAL: NAD, AAOx3 SKIN: Warm and dry. HEENT: Atraumatic. Normocephalic. Pupils equal and round. No scleral icterus. No injection or drainage. No nasal bleeding or discharge. Mucous membranes pink and moist. NECK: Trachea midline. No JVD. CARDIO: Regular rate and rhythm. 4/6 EDUARDO RESP: No accessory muscle use. Clear to auscultation. Breath sounds equal bilaterally. ABD: +BS, soft, non-tender, nondistended. Hepatic and splenic margins not palpable. EXT: Extremities without clubbing, cyanosis, or edema. No obvious deformities. NEURO: Awake and alert. No obvious cranial nerve deficits. Motor grossly within normal limits. Five out of 5 muscle strength in the arms and legs. Normal speech. PSYCH: Appropriate mood and affect; insight and judgment normal. Results Labs CBC & Chem 7: 12/23/18 08:30 12/23/18 08:50 Assessment and Plan Assessment (1) Acute GI bleeding: Code(s): K92.2 - Gastrointestinal hemorrhage, unspecified Status: Acute (2) Symptomatic anemia: Code(s): D64.9 - Anemia, unspecified Status: Acute (3) Aortic stenosis: Code(s): I35.0 - Nonrheumatic aortic (valve) stenosis Status: Chronic (4) Diastolic heart failure: Code(s): I50.30 - Unspecified diastolic (congestive) heart failure Status: Acute (5) CAD (coronary artery disease): Code(s): I25.10 - Atherosclerotic heart disease of [place] coronary artery without angina pectoris Status: Chronic Plan Symptomatic anemia GIB - Pt is an 78 y/o female with severe aortic stenosis, hyperlipidemia, AYAZ, and hx of GERD. Pt was recently hospitalized from 11/30/18 to 12/04/18. She underwent a left and right heart cath on 11/30/18 which revealed proximal LAD stenosis of 80% and 95% in the mid LAD, the diagonal had a 30%-40% and patient underwent orbital rotational atherectomy, balloon angioplasty, drug-eluting stent in the proximal and mid left anterior descending coronary artery. Her hospital course was complicated by an expanding right groin hematoma status post PCI and underwent right groin exploration and repair of right common femoral artery on with Dr. Cheema. Pt was discharged on Plavix, ASA, statin. The BB was held due to hypotension. Following that admission and was started on iron supplements every other day due to anemia. Her labs prior to discharge noted Hgb 8.7/Hct 25.0. She had some diarrhea while on the iron supplements earlier this week and reported that the stool was "jet black" at that time. She held the iron supplements for the last 5-6 days. She reported that she has had some dizziness and orthostatic hypotension. She also noted some tightness in her chest over the last few days and increased weakness. This morning she had a BM and states that it was again "jet black." This prompted her evaluation in the ED. - Her labs in the ED noted Hgb 5.9/Hct 18.7. Pt was noted to be guaiac positive in the ED. - Her last EGD/colonoscopy was 12/16/[address] Cottrell which noted gastritis, mild duodenitis, gastric polyps, distal esophagitis, small hiatal hernia, diverticulosis, polyp in the descending colon and hemorrhoids. - Pt was started on Protonix gtt and Octreotide gtt in the ED - Stop the Octreotide and continue the Protonix gtt - Consulted GI for EGD - Case discussed with Dr. Hutchinson and secondary to the pts recent PCI with HAYDEN she is recommended to continue on the ASA and Plavix so these were resumed. - transfusion with 3 units of PRBCs 12/21 with lasix monitor h/h await EGD Monday cardiology stopped plavix diet per GI Severe Aortic Stenosis CAD Right groin hematoma - She recently underwent a left and right heart cath on 11/30/18 which revealed proximal LAD stenosis of 80% and 95% in the mid LAD, the diagonal had a 30%-40% and patient underwent orbital rotational atherectomy, balloon angioplasty, drug- eluting stent in the proximal and mid left anterior descending coronary artery. Her hospital course was complicated by an expanding right groin hematoma status post PCI and underwent right groin exploration and repair of right common femoral artery on 12/01/[address] Cheema. - - Pt was discharged on Plavix , ASA, statin. The BB was held due to hypotension. - Cont. home meds per discussion with Dr. Hutchinson due to pts HAYDEN - Pt was given IVF in the ED and is to receive transfusion with 3 units PRBCs, will monitor closely for volume overload - Consult placed to Dr. Hutchinson - Pt had been planned to have her bilateral groin sutures removed today, these are planned for removal by the ED Progress Note: Quality VTE Deep Vein Thrombosis/Pulmonary Embolism Present on Admission: No _ (1) Aortic stenosis Qualifiers: Cardiac valve disease etiology: (2) Diastolic heart failure Qualifiers: Heart failure chronicity: acute on chronic Qualified Code(s): I50.33 - Acute on chronic diastolic (congestive) heart failure (3) CAD (coronary artery disease) Qualifiers: Coronary Disease-Associated Artery/Lesion type: [place] vs. transplanted heart: Associated angina:
--- NOTE | 2018-12-23 17:51 | P.PNGI ---
Subjective Interval history: Patient seen and examined. Sitting up in chair. No GI complaints. Decreased appetite but tolerating diet. Normal bowel movement today, no melena. No nausea or vomiting. No abdominal pain. Labs stable. Hemoglobin 9.6, hematocrit 28.0. cardiac clearance obtained and plans for EGD tomorrow. <Rosemarie Flannery - Last Filed: 12/23/18 17:51> Physical Exam Vital signs: Vital Signs 12/22/18 19:15 12/22/18 20:00 12/23/18 00:00 Temperature 97.9 F 97.8 F Pulse Rate 77 81 74 Respiratory Rate 16 16 Blood Pressure 123/60 104/56 L Pulse Oximetry 100 98 12/23/18 04:00 12/23/18 08:00 12/23/18 12:00 Temperature 97.9 F 98.5 F 98.9 F Pulse Rate 101 H 76 82 Respiratory Rate 16 18 18 Blood Pressure 116/56 L 109/53 L 113/54 L Pulse Oximetry 100 99 100 12/23/18 16:00 Temperature 98.5 F Pulse Rate 85 Respiratory Rate 18 Blood Pressure 118/56 L Pulse Oximetry 97 Intake & Output 12/22/18 12/23/18 12/23/18 18:59 06:59 18:59 Intake Total 100 / 100 340 / 340 580 / 580 Balance 100 / 100 340 / 340 580 / 580 Weight 161.01 kg Intake: IV 100 / 100 100 / 100 100 / 100 Protonix Inj 80 MG In NS Inj 100 / 100 100 / 100 100 / 100 100 ML @ 10 mls/hr IV.CONT Q10H [facility] Rx#:[id number] Oral 240 / 240 480 / 480 Other: # Voids 2 3 Date of Last Bowel Movement 12/22/18 # Bowel Movements 1 <Rosemarie Flannery - Last Filed: 12/23/18 17:51> Vital signs: Vital Signs 12/23/18 00:00 12/23/18 04:00 12/23/18 08:00 Temperature 97.8 F 97.9 F 98.5 F Pulse Rate 74 101 H 76 Respiratory Rate 16 16 18 Blood Pressure 104/56 L 116/56 L 109/53 L Pulse Oximetry 98 100 99 12/23/18 12:00 12/23/18 16:00 Temperature 98.9 F 98.5 F Pulse Rate 84 89 Respiratory Rate 18 18 Blood Pressure 113/54 L 118/56 L Pulse Oximetry 100 97 Intake & Output 12/23/18 12/23/18 12/24/18 06:59 18:59 06:59 Intake Total 340 / 340 655 / 655 Balance 340 / 340 655 / 655 Weight 161.01 kg Intake: IV 100 / 100 175 / 175 Protonix Inj 80 MG In NS Inj 100 / 100 175 / 175 100 ML @ 10 mls/hr IV.CONT Q10H [facility] Rx#:[id number] Oral 240 / 240 480 / 480 Other: # Voids 2 3 Date of Last Bowel Movement 12/22/18 # Bowel Movements 1 <Tirso Canada E - Last Filed: 12/23/18 20:35> Results - Labs CBC & Chem 7: 12/23/18 08:30 12/23/18 08:50 Laboratory Results - last 24 hr 12/22/18 12/23/18 12/23/18 21:18 08:30 08:50 WBC 7.8 RBC 3.01 L Hgb 10.0 L 9.6 L Hct 28.0 L MCV 92.9 MCH 31.9 MCHC 34.3 RDW 16.7 Plt Count 243 MPV 6.4 L Neut % (Auto) 75.4 H Lymph % (Auto) 13.9 [place] % (Auto) 7.3 Eos % (Auto) 2.9 Baso % (Auto) 0.5 Neut # (Auto) 5.9 Lymph # (Auto) 1.1 [place] # (Auto) 0.6 Eos # (Auto) 0.2 Baso # (Auto) 0.0 WBC Differential . Differential Comment Auto diff final Sodium 140 Potassium 3.6 Chloride 107 Carbon Dioxide 23.0 Anion Gap 10 BUN 16 Creatinine 0.74 Estimated GFR 76 L Random Glucose 106 Calcium 8.3 L <Rosemarie Flannery - Last Filed: 12/23/18 17:51> - Labs CBC & Chem 7: 12/23/18 08:30 12/23/18 08:50 Laboratory Results - last 24 hr 12/22/18 12/23/18 12/23/18 21:18 08:30 08:50 WBC 7.8 RBC 3.01 L Hgb 10.0 L 9.6 L Hct 28.0 L MCV 92.9 MCH 31.9 MCHC 34.3 RDW 16.7 Plt Count 243 MPV 6.4 L Neut % (Auto) 75.4 H Lymph % (Auto) 13.9 [place] % (Auto) 7.3 Eos % (Auto) 2.9 Baso % (Auto) 0.5 Neut # (Auto) 5.9 Lymph # (Auto) 1.1 [place] # (Auto) 0.6 Eos # (Auto) 0.2 Baso # (Auto) 0.0 WBC Differential . Differential Comment Auto diff final Sodium 140 Potassium 3.6 Chloride 107 Carbon Dioxide 23.0 Anion Gap 10 BUN 16 Creatinine 0.74 Estimated GFR 76 L Random Glucose 106 Calcium 8.3 L <Tirso Canada - Last Filed: 12/23/18 20:35> Assessment and Plan (1) Acute GI bleeding Status: Acute Code(s): K92.2 - Gastrointestinal hemorrhage, unspecified (2) Symptomatic anemia Status: Acute Code(s): D64.9 - Anemia, unspecified (3) Aortic stenosis Status: Chronic Code(s): I35.0 - Nonrheumatic aortic (valve) stenosis (4) CAD (coronary artery disease) Status: Chronic Code(s): I25.10 - Atherosclerotic heart disease of [place] coronary artery without angina pectoris - Plan Patient is a pleasant 78-year-old female with past medical history significant for severe aortic stenosis, hyperlipidemia, obstructive sleep apnea and history of GERD. Patient was recently admitted to the hospital from 11/30/18 to 12/04/18. At that time she underwent a right heart cath which revealed proximal LAD stenosis of 80% and 95% in the mid LAD. At that time patient underwent balloon angioplasty with placement of drug-eluting stent in the proximal and mid left anterior descending coronary artery. That hospitalization apparently was complicated by a hematoma to the right groin. Patient then underwent groin exploration and repair of right common femoral artery on 12/01/2018. Patient was discharged on Plavix, aspirin and a statin. Upon consultation, patient endorses that she has felt dizzy and lightheaded with intermittent shortness of breath on exertion post procedure. She states that since her stent placement, she is experienced generalized weakness and fatigue. States she visited her primary care physician who put her on daily iron supplements. Patient endorses that she has noted black sticky tarry stools for the last 5 days. Patient denies use of NSAIDs other than aspirin 81 mg p.o. daily. She denies use of EtOH or tobacco products. Upon arrival, hemoglobin noted to be 5.9 hematocrit 18.7. Patient has been started on octreotide at 50 mcg as well as a pantoprazole infusion. Of note, patient's last EGD and colonoscopy was performed on 12/16/[address] Cottrell. EGD revealed gastritis, mild duodenitis, gastric polyps and distal esophagitis with a small hiatal hernia. Colonoscopy revealed diverticulosis with a polyp in the descending colon and hemorrhoids. Our service has been consulted to evaluate patient for GI bleeding and melanotic stools with symptomatic anemia GI bleeding with melanotic stools-patient endorses 5-day history of black tarry stools. Endorses accompanying generalized weakness and fatigue Symptomatic anemia Coronary artery disease--with recent placement of balloon angioplasty with drug- eluting stent in the proximal and mid left anterior descending coronary artery. --Recommending supportive treatment with blood transfusions to stabilize patient and keep hemoglobin greater than 7 Plan -Clear liquid diet -N.p.o. after midnight -Obtain consent for EGD -Anticoagulants as per cardiology -Cardiology clearance required for endoscopic procedure to be done tomorrow -Monitor hemoglobin and hematocrit closely -Monitor for active bleeding -Continue pantoprazole drip -Octreotide infusion -Transfuse as needed to keep hemoglobin above 7 -Supportive care -Further recommendations to follow This patient has been seen by myself and Dr. Nunez this note is written on his behalf 12/22/2018 GI bleeding with melanotic stools-patient endorses 5-day history of black tarry stools. Endorses accompanying generalized weakness and fatigue Symptomatic anemia-status post 3 units packed red blood cells. Hemoglobin and hematocrit improved to 9.5/27.4 Coronary artery disease--with recent placement of balloon angioplasty with drug- eluting stent in the proximal and mid left anterior descending coronary artery. --Recommending supportive treatment with blood transfusions to stabilize patient and keep hemoglobin greater than 7 Plan -Cardiac diet -N.p.o. after midnight -Obtain consent for EGD -Anticoagulants as per cardiology -Cardiology clearance required for endoscopic procedure to be done tomorrow -Monitor hemoglobin and hematocrit closely -Monitor for active bleeding -Continue pantoprazole drip -Transfuse as needed to keep hemoglobin above 7 -Supportive care -Further recommendations to follow Patient was seen and examined by myself and Dr. Canada and this note is written on his behalf. 12/23/2018 GI bleeding with melanotic stools-patient endorses 5-day history of black tarry stools. Normal stool today. Symptomatic anemia-status post 3 units packed red blood cells. Hemoglobin and hematocrit improved to 9.6, 28.0. Coronary artery disease--with recent placement of balloon angioplasty with drug- eluting stent in the proximal and mid left anterior descending coronary artery. Plan -Cardiac clearance for EGD obtained. -Cardiac diet -N.p.o. after midnight -Obtain consent for EGD -Anticoagulants as per cardiology -Monitor hemoglobin and hematocrit closely -Monitor for active bleeding -Continue pantoprazole drip -Transfuse as needed to keep hemoglobin above 7 -Supportive care -Further recommendations to follow Patient was seen and examined by myself and Dr. Canada and this note is written on his behalf. <Rosemarie Flannery C - Last Filed: 12/23/18 17:51> (1) Acute GI bleeding Status: Acute Code(s): K92.2 - Gastrointestinal hemorrhage, unspecified (2) Symptomatic anemia Status: Acute Code(s): D64.9 - Anemia, unspecified (3) Aortic stenosis Status: Chronic Code(s): I35.0 - Nonrheumatic aortic (valve) stenosis (4) CAD (coronary artery disease) Status: Chronic Code(s): I25.10 - Atherosclerotic heart disease of [place] coronary artery without angina pectoris - Attending Attestation Patient seen and examined Agree with above Continue with current supportive care Monitor labs EGD tomorrow <Tirso Canada E - Last Filed: 12/23/18 20:35> <Tirso Canada E - Last Filed: 12/23/18 20:35> (3) Aortic stenosis Qualifiers: (4) CAD (coronary artery disease) Qualifiers:
[2018-12-24] MEDS: Pantoprazole Inj 80 MG in Sodium Chlor 0.9% Inj 100 ML IV.CONT SCH ×4 (00:38→22:03)
[2018-12-24 07:32] LABS: Baso % (Auto) 0.4 % (0.0-2.0); Eos # (Auto) 0.2 th/mm3 (0.0-0.4); Eos % (Auto) 3.2 % (0.0-4.0); Hematocrit 27.3 % (35.0-46.0); Hemoglobin 9.5 gm/dL (11.6-15.3); Lymph # (Auto) 1.1 th/mm3 (1.0-4.8); Lymph % (Auto) 16.7 % (9.0-44.0); Mean Corpuscular HGB Conc 34.8 % (32.0-36.0); Mean Corpuscular Hemoglobin 32.7 pg (27.0-34.0); Mean Corpuscular Volume 93.7 fL (80.0-100.0); Mean Platelet Volume 6.6 fL (7.0-11.0); Mono # (Auto) 0.6 th/mm3 (0.0-0.9); Mono % (Auto) 8.5 % (0.0-8.0); Neut # (Auto) 4.7 th/mm3 (1.8-7.7); Neut % (Auto) 71.2 % (16.0-70.0); Platelet Count 229 th/mm3 (150-450); Red Blood Count 2.91 mil/mm3 (4.00-5.30); Red Cell Distribution Width 16.6 % (11.6-17.2); White Blood Count 6.6 th/mm3 (4.0-11.0)
--- NOTE | 2018-12-24 08:06 | P.PNCA ---
Subjective Interval history: No further bleeding. Denies chest pain or shortness of breath. Right groin dressing is itchy. Medications and Allergies Allergies Allergy/AdvReac Type Severity Reaction Status Date / Time No Known Allergies Allergy Verified 12/21/18 11:32 Home Medications Medication Instructions Recorded Confirmed Type cholecalciferol (vitamin D3) 2,000 unit PO DAILY 11/30/18 12/21/18 History [Vitamin D3] [id number] oil 1 cap PO DAILY 11/30/18 12/21/18 History [[place]-3 (with dpa)] aspirin 81 mg PO HS 12/21/18 12/21/18 History Active Medications: Active Medications Acetaminophen (Tylenol) 650 mg PO Q4H PRN PRN Reason: Temp > 100.4 Al Hydroxide/Mg Hydroxide (Milk Of Leanne Broussard) 30 ml PO Q12H PRN PRN Reason: Mild Constipation Aspirin (Aspirin Chew) 81 mg PO [facility] Last Admin: 12/23/18 21:07 Dose: 81 mg Atorvastatin Calcium (Lipitor) 80 mg PO [facility] Last Admin: 12/23/18 21:07 Dose: 80 mg Clopidogrel Bisulfate (Plavix) 75 mg PO DAILY [facility] Last Admin: 12/23/18 08:15 Dose: 75 mg Furosemide (Lasix Inj) 20 mg IV.PUSH [employer] [facility] Last Admin: 12/22/18 02:44 Dose: 20 mg Pantoprazole Sodium 80 mg/ (Sodium Chloride) 100 mls @ 10 mls/hr IV.CONT Q10H [facility] Last Infusion: 12/24/18 05:58 Dose: 10 mls/hr Ondansetron HCl (Zofran Inj) 4 mg IV.PUSH Q6H PRN PRN Reason: NAUSEA OR VOMITING Sodium Chloride (Ns Flush) 2 ml IV.FLUSH UNSCH PRN PRN Reason: FLUSH AFTER USING IV ACCESS Last Admin: 12/21/18 12:09 Dose: 2 ml Sodium Chloride (Ns Flush) 2 ml IV.FLUSH BID [facility] Last Admin: 12/23/18 21:07 Dose: 2 ml Sodium Chloride (Ns Flush) 2 ml IV.FLUSH PRN PRN PRN Reason: FLUSH AFTER USING IV ACCESS Physical Exam Vital signs: Vital Signs 12/23/18 12:00 12/23/18 16:00 12/23/18 20:00 Temperature 98.9 F 98.5 F 97.7 F Pulse Rate 84 89 78 Respiratory Rate 18 18 16 Blood Pressure 113/54 L 118/56 L 142/74 H Pulse Oximetry 100 97 100 12/24/18 00:00 12/24/18 04:00 Temperature 97.9 F 97.8 F Pulse Rate 72 86 Respiratory Rate 16 16 Blood Pressure 119/69 135/75 Pulse Oximetry 98 98 Intake & Output 12/23/18 12/24/18 12/24/18 18:59 06:59 18:59 Intake Total 655 / 655 147 / 147 Balance 655 / 655 147 / 147 Weight 352 lb 11.834 oz Intake: IV 175 / 175 147 / 147 Protonix Inj 80 MG In NS Inj 175 / 175 147 / 147 100 ML @ 10 mls/hr IV.CONT Q10H [facility] Rx#:[id number] Oral 480 / 480 0 / 0 Other: # Voids 3 3 # Bowel Movements 1 Narrative: GENERAL: Well-developed well-nourished. In no acute distress. NECK: No carotid bruits. No JVD. CARDIOVASCULAR: Regular rate and rhythm. 2/6 systolic ejection murmur appreciated. RESPIRATORY: No accessory muscle use. Clear to auscultation. Breath sounds equal bilaterally. MUSCULOSKELETAL: No clubbing or cyanosis. No edema. Right groin wound with no evidence of infection. NEUROLOGICAL: Awake and alert. Normal speech. Results 12/25/18 05:55 12/25/18 05:55 Cardiac Enzymes 12/22/18 Range/Units 09:40 AST 17 (15-37) U/L CBC 12/22/18 12/22/18 12/23/18 Range/Units 09:40 21:18 08:30 WBC 6.6 7.8 (4.0-11.0) th/mm3 RBC 3.00 L 3.01 L (4.00-5.30) mil/mm3 Hgb 9.5 L D 10.0 L 9.6 L (11.6-15.3) gm/dL Hct 27.4 L 28.0 L (35.0-46.0) % Plt Count 270 243 (150-450) th/mm3 Neut # (Auto) 4.7 5.9 (1.8-7.7) th/mm3 Lymph # (Auto) 1.1 1.1 (1.0-4.8) th/mm3 [place] # (Auto) 0.5 0.6 (0.0-0.9) th/mm3 Eos # (Auto) 0.3 0.2 (0.0-0.4) th/mm3 Baso # (Auto) 0.0 0.0 (0.0-0.2) th/mm3 12/24/18 Range/Units 06:50 WBC 6.6 (4.0-11.0) th/mm3 RBC 2.91 L (4.00-5.30) mil/mm3 Hgb 9.5 L (11.6-15.3) gm/dL Hct 27.3 L (35.0-46.0) % Plt Count 229 (150-450) th/mm3 Neut # (Auto) 4.7 (1.8-7.7) th/mm3 Lymph # (Auto) 1.1 (1.0-4.8) th/mm3 [place] # (Auto) 0.6 (0.0-0.9) th/mm3 Eos # (Auto) 0.2 (0.0-0.4) th/mm3 Baso # (Auto) 0.0 (0.0-0.2) th/mm3 Comprehensive Metabolic Panel 12/22/18 12/23/18 Range/Units 09:40 08:50 Sodium 143 140 (136-145) meq/L Potassium 3.3 L 3.6 (3.5-5.1) meq/L Chloride 107 107 (98-107) meq/L Carbon Dioxide 26.4 23.0 (21.0-32.0) meq/L BUN 15 16 (7-18) mg/dL Creatinine 0.83 0.74 (0.50-1.00) mg/dL Calcium 7.9 L 8.3 L (8.5-10.1) mg/dL AST 17 (15-37) U/L ALT 14 (10-53) U/L Alkaline Phosphatase 62 (45-117) U/L Total Protein 6.4 (6.4-8.2) g/dL Albumin 3.3 L (3.4-5.0) g/dL Intake and Output 12/23/18 12/24/18 12/24/18 22:59 06:59 14:59 Intake Total 595 / 595 107 / 107 Balance 595 / 595 107 / 107 Intake: IV 115 / 115 107 / 107 Protonix Inj 80 MG In NS Inj 115 / 115 107 / 107 100 ML @ 10 mls/hr IV.CONT Q10H [facility] Rx#:[id number] Oral 480 / 480 0 / 0 Other: # Voids 3 3 # Bowel Movements 1 Weight 352 lb 11.834 oz Assessment and Plan - Plan Symptomatic anemia, GIB Presented with hemoglobin 5.9, status post transfusion 3 units PRBCs. Hemoglobin improved. Aspirin resumed and Plavix held. GI on board, planning for endoscopyy. Patient will need GI clearance to resume DAPT. 12/24: Hemoglobin remained stable at 9.5. CAD LAD HAYDEN 11/30/18. Acute GIB. Continue Aspirin. Will hold Plavix for now. Right groin hematoma Doing well status post surgical repair. Clean dressing. Severe aortic stenosis TAVR workup on hold pending right groin healing. Discussed Condition With: Patient, Dr. Hutchinson - Attending Attestation continue plavix
--- NOTE | 2018-12-24 12:51 | GIPROC ---
[facility] [address] [facility]. [facility], [address] EGD PROCEDURE REPORT EXAM DATE: 12/24/2018 PATIENT NAME: Irma Gonzalez MR #: [id number] BIRTHDATE: 1940 ATTENDING: Nicholas Nunez MD ORDER #: [id number] CUSTOMER CARE TEAM COACH: Hector Sexton and Shauna Blanchard STATUS: inpatient INDICATIONS: The patient is a 78 yr old female here for an EGD due to melena and acute post hemorrhagic anemia PROCEDURE PERFORMED: EGD, diagnostic MEDICATIONS: Per Anesthesia and None. TOPICAL ANESTHETIC: CONSENT: The patient understands the risks and benefits of the procedure and understands that these risks include, but are not limited to: sedation, allergic reaction, infection, perforation and/or bleeding. Alternative means of evaluation and treatment include, among others: physical exam, x-rays, and/or surgical intervention. The patient elects to proceed with this endoscopic procedure. medical equipment was checked for proper function. Hand hygiene and appropriate measures for infection prevention was taken. After the risks, benefits and alternatives of the procedure were thoroughly explained, Informed consent was verified, confirmed and timeout was successfully executed by the treatment team. The patient was anesthetized with topical anesthesia and the [employer] [id number] endoscope was introduced through the mouth and advanced to the second portion of the duodenum. Retroflexed views revealed a hiatal hernia The gastroscope was then slowly withdrawn and removed. ESOPHAGUS: There was [place] Class A esophagitis noted. STOMACH: There was erythematous moderate and erosive gastritis in the gastric antrum. A small non-bleeding, shallow, round and clean-based ulcer was found in the gastric antrum. ADVERSE EVENTS: There were no complications. IMPRESSIONS: 1. There was [place] Class A esophagitis noted 2. There was erythematous gastritis in the gastric antrum 3. Small ulcer was found in the gastric antrum 4. Retroflexed views revealed a hiatal hernia RECOMMENDATIONS: 1. Continue PPI 2. Monitor labs Supportive tx PATIENT CONDITION: stable DISPOSITION: Inpatient REPEAT EXAM: Return as needed for EGD Nicholas Nunez MD eSigned: Nicholas Nunez MD 12/24/2018 12:51 PM cc: PATIENT NAME: Irma Gonzalez MR#: [id number]
--- NOTE | 2018-12-24 16:38 | P.PNIM ---
Subjective Interval history: No new complaints. Physical Exam Vital signs: Last Vital Signs Temp 98.3 F 12/24/18 12:45 Pulse 79 12/24/18 12:45 Resp 17 12/24/18 12:45 BP 121/56 L 12/24/18 12:45 Pulse Ox 99 12/24/18 13:00 Narrative: GENERAL: NAD, AAOx3 SKIN: Warm and dry. HEENT: Atraumatic. Normocephalic. Pupils equal and round. No scleral icterus. No injection or drainage. No nasal bleeding or discharge. Mucous membranes pink and moist. NECK: Trachea midline. No JVD. CARDIO: Regular rate and rhythm. 4/6 EDUARDO RESP: No accessory muscle use. Clear to auscultation. Breath sounds equal bilaterally. ABD: +BS, soft, non-tender, nondistended. Hepatic and splenic margins not palpable. EXT: Extremities without clubbing, cyanosis, or edema. No obvious deformities. NEURO: Awake and alert. No obvious cranial nerve deficits. Motor grossly within normal limits. Five out of 5 muscle strength in the arms and legs. Normal speech. PSYCH: Appropriate mood and affect; insight and judgment normal. Results Labs CBC & Chem 7: 12/25/18 05:55 12/25/18 05:55 Assessment and Plan Assessment (1) Acute GI bleeding: Code(s): K92.2 - Gastrointestinal hemorrhage, unspecified Status: Acute (2) Symptomatic anemia: Code(s): D64.9 - Anemia, unspecified Status: Acute (3) Aortic stenosis: Code(s): I35.0 - Nonrheumatic aortic (valve) stenosis Status: Chronic (4) CAD (coronary artery disease): Code(s): I25.10 - Atherosclerotic heart disease of [place] coronary artery without angina pectoris Status: Chronic Plan Symptomatic anemia GIB - Pt is an 78 y/o female with severe aortic stenosis, hyperlipidemia, AYAZ, and hx of GERD. Pt was recently hospitalized from 11/30/18 to 12/04/18. She underwent a left and right heart cath on 11/30/18 which revealed proximal LAD stenosis of 80% and 95% in the mid LAD, the diagonal had a 30%-40% and patient underwent orbital rotational atherectomy, balloon angioplasty, drug-eluting stent in the proximal and mid left anterior descending coronary artery. Her hospital course was complicated by an expanding right groin hematoma status post PCI and underwent right groin exploration and repair of right common femoral artery on with Dr. Cheema. Pt was discharged on Plavix, ASA, statin. The BB was held due to hypotension. Following that admission and was started on iron supplements every other day due to anemia. Her labs prior to discharge noted Hgb 8.7/Hct 25.0. She had some diarrhea while on the iron supplements earlier this week and reported that the stool was "jet black" at that time. She held the iron supplements for the last 5-6 days. She reported that she has had some dizziness and orthostatic hypotension. She also noted some tightness in her chest over the last few days and increased weakness. This morning she had a BM and states that it was again "jet black." This prompted her evaluation in the ED. - Her labs in the ED noted Hgb 5.9/Hct 18.7. Pt was noted to be guaiac positive in the ED. - Her last EGD/colonoscopy was 12/16/[address] Cottrell which noted gastritis, mild duodenitis, gastric polyps, distal esophagitis, small hiatal hernia, diverticulosis, polyp in the descending colon and hemorrhoids. - Pt was started on Protonix gtt and Octreotide gtt in the ED - Case discussed with Dr. Hutchinson and secondary to the pts recent PCI with HAYDEN she is recommended to continue on the ASA and Plavix so these were resumed. - transfusion with 3 units of PRBCs 12/21 with lasix - Octreotide stopped - Protonix gtt - EGD (12/24) performed by Dr. Nunez - [place] Class A esophagitis - erythematous gastritis in the antrum - small ulcer in the gastric antrum - monitor vitals and Hg level - diet per GI - anticipate d/c in next 1-2 days Severe Aortic Stenosis CAD Right groin hematoma - She recently underwent a left and right heart cath on 11/30/18 which revealed proximal LAD stenosis of 80% and 95% in the mid LAD, the diagonal had a 30%-40% and patient underwent orbital rotational atherectomy, balloon angioplasty, drug- eluting stent in the proximal and mid left anterior descending coronary artery. Her hospital course was complicated by an expanding right groin hematoma status post PCI and underwent right groin exploration and repair of right common femoral artery on 12/01/[address] Cheema. - - Pt was discharged on Plavix , ASA, statin. The BB was held due to hypotension. - Cont. home meds per discussion with Dr. Hutchinson due to pts HAYDEN - Pt was given IVF in the ED & received transfusion with 3 units PRBCs, will monitor closely for volume overload - Pt had been planned to have her bilateral groin sutures removed. These were removed by the ED. - Appreciate input from Cardiology Progress Note: Quality VTE Deep Vein Thrombosis/Pulmonary Embolism Present on Admission: No _ (1) CAD (coronary artery disease) Qualifiers: Associated angina: Coronary Disease-Associated Artery/Lesion type: [place] vs. transplanted heart: (2) Aortic stenosis Qualifiers: Cardiac valve disease etiology:
[2018-12-24 20:53] LABS: Hematocrit 28.2 % (35.0-46.0); Hemoglobin 9.6 gm/dL (11.6-15.3)
[2018-12-25] MEDS: Pantoprazole Inj 80 MG in Sodium Chlor 0.9% Inj 100 ML IV.CONT SCH (06:24)
[2018-12-25 06:26] LABS: Baso % (Auto) 0.5 % (0.0-2.0); Eos # (Auto) 0.2 th/mm3 (0.0-0.4); Eos % (Auto) 3.1 % (0.0-4.0); Hematocrit 28.3 % (35.0-46.0); Hemoglobin 9.7 gm/dL (11.6-15.3); Lymph # (Auto) 1.1 th/mm3 (1.0-4.8); Lymph % (Auto) 17.3 % (9.0-44.0); Mean Corpuscular HGB Conc 34.2 % (32.0-36.0); Mean Corpuscular Hemoglobin 32.3 pg (27.0-34.0); Mean Corpuscular Volume 94.5 fL (80.0-100.0); Mean Platelet Volume 6.4 fL (7.0-11.0); Mono # (Auto) 0.5 th/mm3 (0.0-0.9); Mono % (Auto) 7.6 % (0.0-8.0); Neut # (Auto) 4.7 th/mm3 (1.8-7.7); Neut % (Auto) 71.5 % (16.0-70.0); Platelet Count 223 th/mm3 (150-450); Red Blood Count 2.99 mil/mm3 (4.00-5.30); Red Cell Distribution Width 16.6 % (11.6-17.2); White Blood Count 6.5 th/mm3 (4.0-11.0)
[2018-12-25 06:58] LABS: Calcium 8.3 mg/dL (8.5-10.1); Carbon Dioxide 24.2 meq/L (21.0-32.0); Magnesium 2.3 mg/dL (1.5-2.5); Potassium 3.6 meq/L (3.5-5.1)
--- NOTE | 2018-12-25 08:52 | P.PNCA ---
Subjective Interval history: EGDs yesterday showed small nonbleeding ulcer. Patient has been tolerating clear liquids and feels well and wants to advance her diet. She denies any chest pain or shortness of breath. Medications and Allergies Allergies Allergy/AdvReac Type Severity Reaction Status Date / Time No Known Allergies Allergy Verified 12/21/18 11:32 Home Medications Medication Instructions Recorded Confirmed Type cholecalciferol (vitamin D3) 2,000 unit PO DAILY 11/30/18 12/21/18 History [Vitamin D3] [id number] oil 1 cap PO DAILY 11/30/18 12/21/18 History [[place]-3 (with dpa)] aspirin 81 mg PO HS 12/21/18 12/21/18 History Active Medications: Active Medications Acetaminophen (Tylenol) 650 mg PO Q4H PRN PRN Reason: Temp > 100.4 Al Hydroxide/Mg Hydroxide (Milk Of Leanne Broussard) 30 ml PO Q12H PRN PRN Reason: Mild Constipation Aspirin (Aspirin Chew) 81 mg PO [facility] Last Admin: 12/24/18 22:02 Dose: 81 mg Atorvastatin Calcium (Lipitor) 80 mg PO HS [facility] Last Admin: 12/24/18 22:02 Dose: 80 mg Clopidogrel Bisulfate (Plavix) 75 mg PO DAILY [facility] Last Admin: 12/24/18 08:20 Dose: 75 mg Furosemide (Lasix Inj) 20 mg IV.PUSH [employer] [facility] Last Admin: 12/22/18 02:44 Dose: 20 mg Pantoprazole Sodium 80 mg/ (Sodium Chloride) 100 mls @ 10 mls/hr IV.CONT Q10H [facility] Stop: 12/25/18 08:59 Last Admin: 12/25/18 06:24 Dose: 10 mls/hr Ondansetron HCl (Zofran Inj) 4 mg IV.PUSH Q6H PRN PRN Reason: NAUSEA OR VOMITING Pantoprazole Sodium (Protonix Inj) 40 mg IV.PUSH BID [facility] Sodium Chloride (Ns Flush) 2 ml IV.FLUSH UNSCH PRN PRN Reason: FLUSH AFTER USING IV ACCESS Last Admin: 12/21/18 12:09 Dose: 2 ml Sodium Chloride (Ns Flush) 2 ml IV.FLUSH BID [facility] Last Admin: 12/24/18 22:04 Dose: 2 ml Sodium Chloride (Ns Flush) 2 ml IV.FLUSH PRN PRN PRN Reason: FLUSH AFTER USING IV ACCESS Physical Exam Vital signs: Vital Signs 12/24/18 12:45 12/24/18 13:00 12/24/18 16:05 Temperature 98.3 F 98.0 F Pulse Rate 79 88 Respiratory Rate 17 17 Blood Pressure 121/56 L 112/53 L Pulse Oximetry 100 99 100 12/24/18 20:00 12/24/18 21:25 12/25/18 00:00 Temperature 97.2 F L 97.2 F L Pulse Rate 83 74 Respiratory Rate 18 17 Blood Pressure 115/56 L 116/58 L Pulse Oximetry 98 97 98 12/25/18 04:00 Temperature 97.6 F Pulse Rate 80 Respiratory Rate 20 Blood Pressure 108/67 Pulse Oximetry 100 Intake & Output 12/24/18 12/25/18 12/25/18 18:59 06:59 18:59 Intake Total 538 / 538 178 / 178 Balance 538 / 538 178 / 178 Intake: IV 178 / 178 Protonix Inj 80 MG In NS Inj 78 178 / 178 100 ML @ 10 mls/hr IV.CONT Q10H [facility] Rx#:[id number] Oral 360 / 360 Anesthesia Amount 100 / 100 Other: # Voids 3 Date of Last Bowel Movement 12/25/18 # Bowel Movements 0 1 Narrative: GENERAL: Well-developed well-nourished. In no acute distress. NECK: No carotid bruits. No JVD. CARDIOVASCULAR: Regular rate and rhythm. 2/6 systolic ejection murmur appreciated. RESPIRATORY: No accessory muscle use. Clear to auscultation. Breath sounds equal bilaterally. MUSCULOSKELETAL: No clubbing or cyanosis. No edema. Right groin wound with no evidence of infection. NEUROLOGICAL: Awake and alert. Normal speech. Results 12/25/18 05:55 12/25/18 05:55 CBC 12/23/18 12/24/18 12/24/18 Range/Units 08:30 06:50 20:03 WBC 7.8 6.6 (4.0-11.0) th/mm3 RBC 3.01 L 2.91 L (4.00-5.30) mil/mm3 Hgb 9.6 L 9.5 L 9.6 L (11.6-15.3) gm/dL Hct 28.0 L 27.3 L 28.2 L (35.0-46.0) % Plt Count 243 229 (150-450) th/mm3 Neut # (Auto) 5.9 4.7 (1.8-7.7) th/mm3 Lymph # (Auto) 1.1 1.1 (1.0-4.8) th/mm3 [place] # (Auto) 0.6 0.6 (0.0-0.9) th/mm3 Eos # (Auto) 0.2 0.2 (0.0-0.4) th/mm3 Baso # (Auto) 0.0 0.0 (0.0-0.2) th/mm3 12/25/18 Range/Units 05:55 WBC 6.5 (4.0-11.0) th/mm3 RBC 2.99 L (4.00-5.30) mil/mm3 Hgb 9.7 L (11.6-15.3) gm/dL Hct 28.3 L (35.0-46.0) % Plt Count 223 (150-450) th/mm3 Neut # (Auto) 4.7 (1.8-7.7) th/mm3 Lymph # (Auto) 1.1 (1.0-4.8) th/mm3 [place] # (Auto) 0.5 (0.0-0.9) th/mm3 Eos # (Auto) 0.2 (0.0-0.4) th/mm3 Baso # (Auto) 0.0 (0.0-0.2) th/mm3 Comprehensive Metabolic Panel 12/23/18 12/25/18 Range/Units 08:50 05:55 Sodium 140 143 (136-145) meq/L Potassium 3.6 3.6 (3.5-5.1) meq/L Chloride 107 111 H (98-107) meq/L Carbon Dioxide 23.0 24.2 (21.0-32.0) meq/L BUN 16 14 (7-18) mg/dL Creatinine 0.74 0.77 (0.50-1.00) mg/dL Calcium 8.3 L 8.3 L (8.5-10.1) mg/dL Intake and Output 12/24/18 12/25/18 12/25/18 22:59 06:59 14:59 Intake Total 438 / 438 100 / 100 Balance 438 / 438 100 / 100 Intake: IV 78 / 78 100 / 100 Protonix Inj 80 MG In NS Inj 78 / 78 100 / 100 100 ML @ 10 mls/hr IV.CONT Q10H [facility] Rx#:[id number] Oral 360 / 360 Other: # Voids 3 Date of Last Bowel Movement 12/25/18 # Bowel Movements 0 1 Assessment and Plan - Plan Symptomatic anemia, GIB Presented with hemoglobin 5.9, status post transfusion 3 units PRBCs. Hemoglobin improved. Aspirin resumed and Plavix held. GI on board. EGD 12/24 showed esophagitis, gastritis, gastric ulcer. 12/24: Hemoglobin remains stable at 9.7. Needs need GI clearance to resume DAPT. CAD LAD HAYDEN 11/30/18. Acute GIB. Continue Aspirin. Plavix on hold for now, awaiting GI clearance to resume. Right groin hematoma Doing well status post surgical repair. Clean dressing. Severe aortic stenosis TAVR workup on hold pending right groin healing. Discussed Condition With: Patient, RN, Dr. Hutchinson - Attending Attestation nonbleeding gastric ulcer managed conservatively. stable cardiac singh continue aspirin and plavix or high risk for acute stent thrombosis. hemoglobin stable TAVR tenatively scheduled for 01/16/19 ok for discharge when cleared from GI FU in OPD will sign off call with further questions
[2018-12-25] MEDS ORDERED: Pantoprazole Inj 40 MG Vial IV.PUSH SCH (09:00)
--- NOTE | 2018-12-25 09:10 | P.PNIM ---
Subjective Interval history: DRAFT Physical Exam Vital signs: Last Vital Signs Temp 97.6 F 12/25/18 04:00 Pulse 80 12/25/18 04:00 Resp 20 12/25/18 04:00 BP 108/67 12/25/18 04:00 Pulse Ox 100 12/25/18 04:00 Narrative: GENERAL: NAD, AAOx3 SKIN: Warm and dry. HEENT: Atraumatic. Normocephalic. Pupils equal and round. No scleral icterus. No injection or drainage. No nasal bleeding or discharge. Mucous membranes pink and moist. NECK: Trachea midline. No JVD. CARDIO: Regular rate and rhythm. 4/6 EDUARDO RESP: No accessory muscle use. Clear to auscultation. Breath sounds equal bilaterally. ABD: +BS, soft, non-tender, nondistended. Hepatic and splenic margins not palpable. EXT: Extremities without clubbing, cyanosis, or edema. No obvious deformities. NEURO: Awake and alert. No obvious cranial nerve deficits. Motor grossly within normal limits. Five out of 5 muscle strength in the arms and legs. Normal speech. PSYCH: Appropriate mood and affect; insight and judgment normal. Results Labs CBC & Chem 7: 12/25/18 05:55 12/25/18 05:55 Assessment and Plan Assessment (1) Acute GI bleeding: Code(s): K92.2 - Gastrointestinal hemorrhage, unspecified Status: Acute (2) Symptomatic anemia: Code(s): D64.9 - Anemia, unspecified Status: Acute (3) Aortic stenosis: Code(s): I35.0 - Nonrheumatic aortic (valve) stenosis Status: Chronic (4) CAD (coronary artery disease): Code(s): I25.10 - Atherosclerotic heart disease of [place] coronary artery without angina pectoris Status: Chronic Plan Symptomatic anemia GIB - Pt is an 78 y/o female with severe aortic stenosis, hyperlipidemia, AYAZ, and hx of GERD. Pt was recently hospitalized from 11/30/18 to 12/04/18. She underwent a left and right heart cath on 11/30/18 which revealed proximal LAD stenosis of 80% and 95% in the mid LAD, the diagonal had a 30%-40% and patient underwent orbital rotational atherectomy, balloon angioplasty, drug-eluting stent in the proximal and mid left anterior descending coronary artery. Her hospital course was complicated by an expanding right groin hematoma status post PCI and underwent right groin exploration and repair of right common femoral artery on with Dr. Cheema. Pt was discharged on Plavix, ASA, statin. The BB was held due to hypotension. Following that admission and was started on iron supplements every other day due to anemia. Her labs prior to discharge noted Hgb 8.7/Hct 25.0. She had some diarrhea while on the iron supplements earlier this week and reported that the stool was "jet black" at that time. She held the iron supplements for the last 5-6 days. She reported that she has had some dizziness and orthostatic hypotension. She also noted some tightness in her chest over the last few days and increased weakness. This morning she had a BM and states that it was again "jet black." This prompted her evaluation in the ED. - Her labs in the ED noted Hgb 5.9/Hct 18.7. Pt was noted to be guaiac positive in the ED. - Her last EGD/colonoscopy was 12/16/[address] Cottrell which noted gastritis, mild duodenitis, gastric polyps, distal esophagitis, small hiatal hernia, diverticulosis, polyp in the descending colon and hemorrhoids. - Pt was started on Protonix gtt and Octreotide gtt in the ED - Case discussed with Dr. Hutchinson and secondary to the pts recent PCI with HAYDEN she is recommended to continue on the ASA and Plavix so these were resumed. - transfusion with 3 units of PRBCs 12/21 with lasix - Octreotide stopped - Protonix gtt - EGD (12/24) performed by Dr. Nunez - ALMA Class A esophagitis - erythematous gastritis in the antrum - small ulcer in the gastric antrum - monitor vitals and Hg level - diet per GI - anticipate d/c in next 1-2 days Severe Aortic Stenosis CAD Right groin hematoma - She recently underwent a left and right heart cath on 11/30/18 which revealed proximal LAD stenosis of 80% and 95% in the mid LAD, the diagonal had a 30%-40% and patient underwent orbital rotational atherectomy, balloon angioplasty, drug- eluting stent in the proximal and mid left anterior descending coronary artery. Her hospital course was complicated by an expanding right groin hematoma status post PCI and underwent right groin exploration and repair of right common femoral artery on 12/01/[address] Cheema. - - Pt was discharged on Plavix , ASA, statin. The BB was held due to hypotension. - Cont. home meds per discussion with Dr. Hutchinson due to pts HAYDEN - Pt was given IVF in the ED & received transfusion with 3 units PRBCs, will monitor closely for volume overload - Pt had been planned to have her bilateral groin sutures removed. These were removed by the ED. - Appreciate input from Cardiology Progress Note: Quality VTE Deep Vein Thrombosis/Pulmonary Embolism Present on Admission: No _ (1) Aortic stenosis Qualifiers: Cardiac valve disease etiology: (2) CAD (coronary artery disease) Qualifiers: Coronary Disease-Associated Artery/Lesion type: [place] vs. transplanted heart: Associated angina:
--- NOTE | 2018-12-25 17:45 | P.DS ---
DS: Providers Date of admission: 12/21/18 14:04 Primary care physician: Eugenio Mcneil MD Consults: 12/21/18 16:25 Consult to Gastroenterology Routine Consulting Provider: Nicholas Nunez V Reason for Consultation: anemia, melanotic stool, recently started on plavix in preparation for TAVR Notified:: Office Spoke with:: PIERCE Date Notified:: 12/21/18 Time Notified:: 16:31 Ordering Provider: RAKESH 12/21/18 16:55 Consult to Cardiology Routine Consulting Provider: Wing Rona Cherry Does the patient have a Systems Integration Engineer who follows them?: Yes Preferred Server Administrator:: Bassam Hutchinson Reason for Consultation: Case discussed with Dr. Hutchinson, pt known to him Recent PCI with HAYDEN on plavix and ASA, admitted with GIB Notified:: Service Spoke with:: KE Date Notified:: 12/21/18 Time Notified:: 17:25 Ordering Provider: RAKESH Brief History from admission: Mrs. Gonzalez is a pleasant 78 y/o female with severe aortic stenosis, hyperlipidemia, AYAZ, and hx of GERD. Pt was recently hospitalized from 11/30/18 to 12/04/18. She underwent a left and right heart cath on 11/30/18 which revealed proximal LAD stenosis of 80% and 95% in the mid LAD, the diagonal had a 30%-40% and patient underwent orbital rotational atherectomy , balloon angioplasty, drug-eluting stent in the proximal and mid left anterior descending coronary artery. Her hospital course was complicated by an expanding right groin hematoma status post PCI and underwent right groin exploration and repair of right common femoral artery on 12/01/[address] Cheema. Pt was discharged on Plavix, ASA, statin. The BB was held due to hypotension. She reports that she was doing well following that hospitalization. She followed up with her PCP following that admission and was started on iron supplements every other day due to anemia. Her labs prior to discharge noted Hgb 8.7/Hct 25.0. She had some diarrhea while on the iron supplements earlier this week and reported that the stool was jet black at that time. She called her PCP and was instructed to hold the iron supplements which she has not taken in the last 5-6 days. She reported that she has had some dizziness and orthostatic hypotension according to the [facility] nurses. She also noted some tightness in her chest over the last few days and increased weakness and having to use her walker more. This morning she had a BM and states that it was again "jet black." This prompted her evaluation in the ED. Her labs in the ED noted Hgb 5.9/Hct 18.7. Pt does not take any PPI or H2 blockers but did in the past for GERD. She denies any NSAID use other than her ASA. She denies any abd pain, nausea/vomiting, reflux, dysphagia, BRBPR or hematochezia. She was noted to be guaiac positive in the ED. Her last EGD/colonoscopy was 12/16/[address] Cottrell which noted gastritis, mild duodenitis, gastric polyps, distal esophagitis, small hiatal hernia, diverticulosis, polyp in the descending colon and hemorrhoids. Past Medical Hx: Severe aortic stenosis Hx of SBO GERD Hiatal hernia AYAZ Hyperlipidemia Chronic back pain Osteoarthritis 2D echo (11/30/18): - Mild concentric left ventricular hypertrophy. - Estimated ejection fraction of 60-65%. - Diffuse calcification of the aortic valve. - Severe aortic valve stenosis. - Aortic valve mean gradient is 37 mmHg Past Surgical Hx: LHC/RHC with Dr. Hutchinson on 11/30/18 --> Severe aortic valve stenosis, severe calcific proximal and mid left anterior descending coronary artery stenosis, normal left and right-sided filling pressures, normal pulmonary pressures, and successful orbital rotational arthrectomy, balloon angioplasty, and drug- eluting stent placement in the proximal and mid left anterior descending coronary artery. Right groin exploration and repair of right common femoral artery on 12/01/[address] Cheema EGD/colonoscopy was 12/16/[address] Cottrell which noted gastritis, mild duodenitis, gastric polyps, distal esophagitis, small hiatal hernia, diverticulosis, polyp in the descending colon and hemorrhoids Lysis of adhesions Tubal ligation Hernia surgery Bilateral knee arthroplasty Shoulder surgery Parathyroidectomy Family Hx: Noncontributory Social Hx: Remote hx of tobacco use, quit when she was 35 y/o Denies any alcohol use or illicit drug use DS: Summary Time Spent with Patient Total time spent providing and/or coordinating discharge services: Quality: VTE Deep Vein Thrombosis/Pulmonary Embolism Present on Admission: No Results Labs on day of discharge: Labs from last 24 hours 12/25/18 12/25/18 12/24/18 05:55 05:55 20:03 WBC 6.5 RBC 2.99 L Hgb 9.7 L 9.6 L Hct 28.3 L 28.2 L MCV 94.5 MCH 32.3 MCHC 34.2 RDW 16.6 Plt Count 223 MPV 6.4 L Neut % (Auto) 71.5 H Lymph % (Auto) 17.3 [place] % (Auto) 7.6 Eos % (Auto) 3.1 Baso % (Auto) 0.5 Neut # (Auto) 4.7 Lymph # (Auto) 1.1 [place] # (Auto) 0.5 Eos # (Auto) 0.2 Baso # (Auto) 0.0 WBC Differential . Differential Comment Auto diff final Sodium 143 Potassium 3.6 Chloride 111 H Carbon Dioxide 24.2 Anion Gap 8 BUN 14 Creatinine 0.77 Estimated GFR 72 L Random Glucose 95 Calcium 8.3 L Magnesium 2.3 Impressions ITS Impressions Chest X-Ray 12/21/18 12:04 CONCLUSION: Mild compensated cardiomegaly Venous Doppler Study 12/21/18 13:04 CONCLUSION: 1. No deep venous thrombosis identified. 2. There is an area of superficial venous thrombosis in a varicosity which arises from the greater saphenous in the right upper thigh/groin region. Discharge Plan Discharge Condition Condition: Stable Physicians Team Primary Care Provider: Eugenio Mcneil Attending Provider: Sheldon Evans Other Providers: Nicholas Nunez V ; Wing Rona Cherry Rxs /Orders / Referrals /Forms Prescriptions: No Action aspirin 81 mg tablet,chewable 81 mg PO HS RF: 0 cholecalciferol (vitamin D3) [Vitamin D3] 2,000 unit Tablet 2,000 unit PO DAILY RF: 0 [id number] oil [[place]-3 (with dpa)] 1,050-1,200 mg Capsule 1 cap PO DAILY RF: 0 atorvastatin 80 mg Tablet 80 mg PO HS 90 Days Qty: 90 RF: 3 clopidogrel [Plavix] 75 mg Tablet 75 mg PO DAILY 90 Days Qty: 90 RF: 3 Referrals: Eugenio Mcneil MD [Primary Care Provider] - See Instructions Discharge Instructions Patient Printed Instructions: Chest Pain (ED) Status ED Status: Left Department
--- NOTE | 2018-12-25 17:54 | P.DCO ---
Diagnosis (1) Acute GI bleeding: Status: Acute (2) Symptomatic anemia: Status: Acute (3) Aortic stenosis: Status: Chronic (4) Diastolic heart failure: Status: Acute Home Health Nursing Order: Medical education, Signs/symptoms of disease process and Medication education-adverse effect Case Management Consult Case Management Consult-Home Health: Yes I have seen patient Irma Gonzalez on 12/25/18. My clinical findings support the need for the requested home health care services because: Medication compliance is questionable, Limited ability to care for self and Need for psychosocial assistance I certify that my clinical findings support that this patient is homebound because: Unsafe to leave home unassisted, Need for psychosocial assistance and Unable to use public transportation _ (1) Aortic stenosis Qualifiers: Cardiac valve disease etiology: (2) Diastolic heart failure Qualifiers: Heart failure chronicity: acute on chronic Qualified Code(s): I50.33 - Acute on chronic diastolic (congestive) heart failure
[2018-12-25 18:10] VITALS: BP 129/61; RESP 16; TEMP 98.8; O2SAT 98
[2018-12-25 18:33] VITALS: PULSE 89
[2018-12-25] MEDS ORDERED: Lidocaine PF 1% Inj 5 ML Syringe OTHER ONE (18:47)
[2018-12-26] MEDS ORDERED: Ferrous Sulfate 325 MG Tablet PO SCH (09:00)
== END 2018-12-25 18:48 | disposition home health service (06) | DRG 377 ==
LOC: NEPE 11:00 → NEDA 14:04 → N04 16:50 → NEDA 16:56
PROVIDERS: ADMIT Hospitalist; ATTEND Hospitalist
PROC: PANENDO (2018-12-24 12:06)
DX: I25.119 Atherosclerotic heart disease of native coronary artery with unspecified angina pectoris; G47.33 Obstructive sleep apnea (adult) (pediatric); Z90.49 Acquired absence of other specified parts of digestive tract; K21.0 Gastro-esophageal reflux disease with esophagitis; M19.90 Unspecified osteoarthritis, unspecified site; Z96.653 Presence of artificial knee joint, bilateral; M54.9 Dorsalgia, unspecified; K29.70 Gastritis, unspecified, without bleeding; G89.29 Other chronic pain; Z79.82 Long term (current) use of aspirin; Z79.899 Other long term (current) drug therapy; Z98.51 Tubal ligation status; I50.33 Acute on chronic diastolic (congestive) heart failure; E78.5 Hyperlipidemia, unspecified; Z79.02 Long term (current) use of antithrombotics/antiplatelets; K44.9 Diaphragmatic hernia without obstruction or gangrene; D64.9 Anemia, unspecified; Z95.5 Presence of coronary angioplasty implant and graft; Z87.891 Personal history of nicotine dependence; I35.0 Nonrheumatic aortic (valve) stenosis; K25.4 Chronic or unspecified gastric ulcer with hemorrhage
CPT/HCPCS: 36430; 71010; 71045; 74174; 80048; 80053; 82550; 83520; 83690; 83735; 83880; 84484; 85014; 85018; 85025; 85610; 85730; 86850; 86900; 86901; 86923; 93005; 93971; 99285; C9113; J1940; J2354; J2704; J7040; P9016; Q9967